=== PATIENT | female | born 1955 | race Caucasian/White ===

== ENCOUNTER 2017-09-27 13:40 | Inpatient (IN) | payer MEDICARE, OTHER, MEDICAID ==
[2017-09-27] VITALS (10 sets, daily range): BP systolic 130–162; BP diastolic 69–78
[~2017-09-27] VITALS: Ht 162.6 cm; Wt 100.8 kg
[2017-09-27] MEDS ORDERED: IPRATRPIUM/ALBUTEROL 0.5/2.5MG 3 ML NEBU. NEB ONE (14:00)
[2017-09-27 14:17] LABS: BASO # 0.1 x10^3/uL (0.0-0.2); BASO % 1 % (0-3); EOS % 0 % (0-3); HEMATOCRIT 41.4 % (36.0-47.0); HEMOGLOBIN 13.6 g/dL (12.0-15.5); LYMPH # 1.8 x10^3/uL (1.0-4.8); LYMPH % 15 % (24-48); MEAN CORPUSCULAR HEMOGLOBIN 29 pg (25-35); MEAN CORPUSCULAR HGB CONC 33 g/dL (31-37); MEAN CORPUSCULAR VOLUME 89 fL (79-100); MONO % 7 % (0-9); NEUT % 77 % (31-73); PLATELET COUNT 330 x10^3/uL (140-400); RED BLOOD COUNT 4.67 x10^6/uL (3.50-5.40); RED CELL DISTRIBUTION WIDTH 14.1 % (11.5-14.5); WHITE BLOOD COUNT 12.3 x10^3/uL (4.0-11.0)
[2017-09-27 14:22] LABS: CALCIUM 8.5 mg/dL (8.5-10.1); CREATININE 0.9 mg/dL (0.6-1.0); POTASSIUM 4.6 mmol/L (3.5-5.1)
--- NOTE | 2017-09-27 14:26 | RAD ---
AP chest 11/28/2015 Clinical indication: Shortness of air. Comparison: None. Findings: Enlargement of the cardiac silhouette with pulmonary venous congestion and interstitial opacities. There are trace bilateral pleural effusions. Mild bibasilar atelectasis. No pneumothorax. Impression: Findings of CHF with cardiomegaly, interstitial edema, and trace bilateral pleural effusions.
--- NOTE | 2017-09-27 14:26 | PHYS DOC ---
Past Medical History Past Medical History: CAD, Diabetes-Type II, Hypertension, Other Additional Past Medical Histor: Brown Lung Past Surgical History: Appendectomy, Cholecystectomy, Tonsillectomy, Tubal ligation Alcohol Use: None Drug Use: None Adult General Chief Complaint Chief Complaint: SHORTNESS OF BREATH HPI HPI 62-year-old female presenting to the emergency department today with shortness of breath. She denies any chest pain. Her shortness of breath started yesterday. She has a history of hypertension diabetes and coronary artery disease. 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 I'm unable to further clarify what she means by this. Her source of breath is worse with exertion and improved with rest. She denies fevers chills or recent cough. She denies unilateral leg swelling hemoptysis personal history of blood clotting disorder or recent immobilization or surgery. Review of systems is negative for chest pain abdominal pain nausea vomiting diaphoresis. She denies fevers or chills. All other review of systems is negative unless otherwise noted in history of present illness. ED course: 62-year-old female presenting to the emergency department today with shortness of breath found to be hypoxic upon triage placed on a nonrebreather then titrated down to nasal cannula. Otherwise the patient is afebrile upon arrival with a normal heart rate. Her blood pressure is mildly elevated. On physical exam the patient is breathing mildly tachypneic. On examination she has mild wheezing bilaterally. Otherwise abdomen is soft and nontender. The remainder the exam is unremarkable. No edema in the legs. Chest x-ray EKG and blood work obtained and reviewed. All other review of systems is negative unless otherwise noted in history of present illness. Patient was given Lasix and DuoNeb in the emergency room. Chest x-ray suggestive heart failure. Pedal edema present. Troponin minimally elevated. Discussed the case with Dr. Antunez who agreed with management. initial ekg shows sinus rhythm st segments congruent. Repeat EKG shows no acute changes. CT angiogram negative for acute pulmonary embolism. Patient was then admitted to the ICU for further evaluation workup and care. Review of Systems Review of Systems SEE ABOVE. Current Medications Current Medications Current Medications Medications (Trade) Dose Ordered Sig/Rosio Start Time Stop Time Status Last Admin Dose Admin Albuterol/ Ipratropium (Duoneb) 3 ml 1X ONCE 09/27/17 14:00 09/27/17 14:01 DC 09/27/17 13:59 3 ML Furosemide (Lasix) 40 mg 1X ONCE 09/27/17 14:45 09/27/17 14:46 DC 09/27/17 14:40 40 MG Iohexol (Omnipaque 300 Mg/ml) 75 ml 1X ONCE 09/27/17 15:15 09/27/17 15:16 DC 09/27/17 15:17 75 ML Ondansetron HCl (Zofran) 4 mg 1X ONCE 09/27/17 14:45 09/27/17 14:46 DC 09/27/17 14:37 4 MG Allergies Allergies Allergies Coded Allergies Type Severity Reaction Last Updated Verified No Known Drug Allergies 09/27/17 No Physical Exam Physical Exam SEE ABOVE Constitutional: Well developed, well nourished, no acute distress, non-toxic appearance. [] HENT: Normocephalic, atraumatic, bilateral external ears normal, oropharynx moist, no oral exudates, nose normal. [] Eyes: PERRLA, EOMI, conjunctiva normal, no discharge. [] Neck: Normal range of motion, no tenderness, supple, no stridor. [] Cardiovascular:Heart rate regular rhythm, no murmur [] Lungs & Thorax: SEE ABOVE Abdomen: Bowel sounds normal, soft, no tenderness, no masses, no pulsatile masses. [] Skin: Warm, dry, no erythema, no rash. [] Back: No tenderness, no CVA tenderness. [] Extremities: No tenderness, no cyanosis, no clubbing, ROM intact, no edema. [] Neurologic: Alert and oriented X 3, normal motor function, normal sensory function, no focal deficits noted. [] Psychologic: Affect normal, judgement normal, mood normal. [] Current Patient Data Vital Signs Vital Signs Date Time Temp Pulse Resp B/P (MAP) Pulse Ox O2 Delivery O2 Flow Rate FiO2 09/27/17 15:30 78 18 154/77 (102) 95 NonRebreather Mask 10.0 09/27/17 13:45 98.4 98.4 Lab Values Laboratory Tests Test 09/27/17 13:55 White Blood Count 12.3 x10^3/uL (4.0-11.0) H Red Blood Count 4.67 x10^6/uL (3.50-5.40) Hemoglobin 13.6 g/dL (12.0-15.5) Hematocrit 41.4 % (36.0-47.0) Mean Corpuscular Volume 89 fL (79-100) Mean Corpuscular Hemoglobin 29 pg (25-35) Mean Corpuscular Hemoglobin Concent 33 g/dL (31-37) Red Cell Distribution Width 14.1 % (11.5-14.5) Platelet Count 330 x10^3/uL (140-400) Neutrophils (%) (Auto) 77 % (31-73) H Lymphocytes (%) (Auto) 15 % (24-48) L Monocytes (%) (Auto) 7 % (0-9) Eosinophils (%) (Auto) 0 % (0-3) Basophils (%) (Auto) 1 % (0-3) Neutrophils # (Auto) 9.5 x10^3uL (1.8-7.7) H Lymphocytes # (Auto) 1.8 x10^3/uL (1.0-4.8) Monocytes # (Auto) 0.8 x10^3/uL (0.0-1.1) Eosinophils # (Auto) 0.0 x10^3/uL (0.0-0.7) Basophils # (Auto) 0.1 x10^3/uL (0.0-0.2) Sodium Level 140 mmol/L (136-145) Potassium Level 4.6 mmol/L (3.5-5.1) Chloride Level 100 mmol/L (98-107) Carbon Dioxide Level 30 mmol/L (21-32) Anion Gap 10 (6-14) Blood Urea Nitrogen 12 mg/dL (7-20) Creatinine 0.9 mg/dL (0.6-1.0) Estimated GFR (Cockcroft-Gault) 63.0 Glucose Level 195 mg/dL (70-99) H Calcium Level 8.5 mg/dL (8.5-10.1) Total Bilirubin 0.6 mg/dL (0.2-1.0) Direct Bilirubin 0.1 mg/dL (0.0-0.2) Aspartate Amino Transferase (AST) 30 U/L (15-37) Alanine Aminotransferase (ALT) 24 U/L (14-59) Alkaline Phosphatase 111 U/L (46-116) Troponin I Quantitative 0.072 ng/mL (0.000-0.055) XG-Ayh-P-Type Natriuretic Peptide 2221 pg/mL (0-124) H Total Protein 8.1 g/dL (6.4-8.2) Albumin 3.5 g/dL (3.4-5.0) Lipase 78 U/L (73-393) Laboratory Tests 09/27/17 13:55 Laboratory Tests 09/27/17 13:55 EKG EKG [] Radiology/Procedures Radiology/Procedures [] Course & Med Decision Making Course & Med Decision Making Pertinent Labs and Imaging studies reviewed. (See chart for details) [] Dragon Disclaimer Dragon Disclaimer This electronic medical record was generated, in whole or in part, using a voice recognition dictation system. Departure Departure Impression: Primary Impression: SOB (shortness of breath) Disposition: ADMITTED INPATIENT Admitting Physician: Sarah Vyas Condition: STABLE Critical Care Time Critical care time was [45] minutes exclusive of procedures. Time was spent evaluating the patient, ordering the administration of medications, reviewing chest x-ray, reevaluating the patient, discussing with the admitting provider and documenting. JOHAN KRAFT MD Sep 27, 2017 14:26
[2017-09-27 14:30] LABS: ALBUMIN 3.5 g/dL (3.4-5.0); DIRECT BILIRUBIN 0.1 mg/dL (0.0-0.2); TOTAL BILIRUBIN 0.6 mg/dL (0.2-1.0); TOTAL PROTEIN 8.1 g/dL (6.4-8.2)
[2017-09-27] MEDS ORDERED: ONDANSETRON PF 4 MG/2 ML VIAL. ONE (14:31)
[2017-09-27] MEDS ORDERED: FUROSEMIDE 40 MG/4 ML VIAL. IVP ONE (14:45)
[2017-09-27] MEDS ORDERED: ONDANSETRON PF 4 MG/2 ML VIAL. IV ONE (14:45)
[2017-09-27] MEDS ORDERED: IOHEXOL 300 MG/ML 100ML VIAL. IV ONE (15:15)
[2017-09-27] MEDS ORDERED: ONDANSETRON PF 4 MG/2 ML VIAL. IV PRN (15:45)
[2017-09-27] MEDS ORDERED: MORPHINE SULFATE 2 MG/ML DISP.SYRIN. IV PRN (15:45)
[2017-09-27] MEDS ORDERED: ASPIRIN CHEWABLE 81 MG TABLET. PO ONE (16:00)
--- NOTE | 2017-09-27 16:18 | RAD ---
PQRS Compliance Statement: One or more of the following individualized dose reduction techniques were utilized for this examination: 1. Automated exposure control 2. Adjustment of the mA and/or kV according to patient size 3. Use of iterative reconstruction technique CT ANGIOGRAPHY CHEST: 09/27/2017 3:19 PM Indication: 62 years old Female. Shortness of breath. Comparison studies: None. Technique: Multiple contiguous axial images of the chest were obtained from the thoracic inlet through the upper abdomen following the administration of nonionic contrast. Two-D coronal and sagittal reconstructions were performed. Maximum intensity projection images were obtained at an independent workstation to further evaluate the suspected abnormality of the pulmonary arteries. FINDINGS: Thyroid gland is normal in appearance. There are no pathologically enlarged axillary lymph nodes. A right precarinal lymph node measures 9 mm by short axis. No pathologically enlarged hilar lymph nodes are present. Heart size is within normal limits. Thoracic aorta is normal in course and caliber. Three-vessel coronary artery vascular calcifications are present. There is no pericardial effusion. There are small bilateral pleural effusions with adjacent airspace consolidation which may represent compressive atelectasis versus infiltrates. There is diffuse intrahepatic bile or septal thickening with groundglass attenuation compatible with pulmonary vascular congestion and pulmonary edema. Subpleural interstitial opacities as well as alveolar consolidation may represent infectious/inflammatory pneumonitis. No pneumothorax. Visualized portions of the upper abdomen are normal. Moderate degenerative changes of the thoracic spine are present. IMPRESSION: 1. No evidence for acute pulmonary embolism. 2. Constellation of findings are most suggestive of congestive heart failure with small bilateral pleural effusions with adjacent airspace consolidation representing either compressive atelectasis or infiltrates as well as pulmonary vascular congestion with interstitial and alveolar edema. 3. Multifocal subpleural patchy areas of consolidation to represent a pneumonitis of infectious/inflammatory etiology. A follow-up chest CT in 4-6 weeks is recommended to ensure resolution. Electronically signed by: Olinda Price MD (09/27/2017 4:15 PM) [facility]
[2017-09-27] MEDS ORDERED: METO100T7 PO (18:04)
[2017-09-27] MEDS ORDERED: OMEP40CA5 PO (18:04)
[2017-09-27] MEDS ORDERED: CHOL10003 PO (18:04)
[2017-09-27] MEDS ORDERED: NIFE90TA PO (18:04)
[2017-09-27] MEDS ORDERED: DULO60CA6 PO (18:04)
[2017-09-27] MEDS ORDERED: ASPI-630 PO (18:04)
[2017-09-27] MEDS ORDERED: potassium OTC (18:04)
[2017-09-27] MEDS ORDERED: CETI10CA PO (18:04)
[2017-09-27] MEDS ORDERED: LOSA100T6 PO (18:04)
[2017-09-27] MEDS ORDERED: NITR100C62 PO (18:04)
[2017-09-27] MEDS ORDERED: LACT1CAP8 PO (18:04)
[2017-09-27] MEDS ORDERED: FURO-69 PO (18:04)
[2017-09-27] MEDS ORDERED: MIRA50TA PO (18:04)
[2017-09-27] MEDS ORDERED: METF500T9 PO (18:04)
[2017-09-27] MEDS ORDERED: HYDR-2758 PO (18:04)
[2017-09-27] MEDS ORDERED: SIMV40TA3 PO (18:04)
--- NOTE | 2017-09-27 18:30 | PDOC1 ---
History and Physical Date of Admission Date of Admission DATE: 09/27/17 TIME: 18:21 Identification/Chief Complaint Chief Complaint short of breath Problems: Source Source: Chart review, Patient History of Present Illness History of Present Illness Ms. Devi, is a 62-year-old femalea admit to ICU with acute shortness of breath. > 24 hours of symptoms, has worsened over time, she lives [place] of [facility] in [place] and was visiting her daughter the past few days, and had worsening weakness and dyspnea and LE swelling. She takes lasix, but has not cardiac disease she is aware of, and has not had an echo that she can recall She has a history of hypertension diabetes and coronary artery disease. 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 She has never heard of interstitial lung disease. shortness of breath at rest today, w. exertion for days no chest pain Past Medical History Cardiovascular: HTN Pulmonary: Other (brown lung disease) GI: No pertinent hx Psych: Depression Endocrine: Diabetes Family History Family History: Other (lung disease from glove factory) Social History Smoke: No ALCOHOL: rare Drugs: None Current Problem List Problem List Problems Medical Problems: (1) SOB (shortness of breath) Status: Acute Problems: Current Medications Current Medications Current Medications Albuterol/ Ipratropium (Duoneb) 3 ml 1X ONCE NEB Last administered on 13:59; Start 09/27/17 at 14:00; Stop 09/27/17 at 14:01; Status DC Ondansetron HCl (Zofran) 4 mg STK-MED ONCE .ROUTE ; Start 09/27/17 at 14:31; Stop 09/27/17 at 14:32; Status DC Furosemide (Lasix) 40 mg 1X ONCE IVP Last administered on 09/27/17 14:40; Start 09/27/17 at 14:45; Stop 09/27/17 at 14:46; Status DC Ondansetron HCl (Zofran) 4 mg 1X ONCE IV Last administered on 09/27/17 14:37 ; Start 09/27/17 at 14:45; Stop 09/27/17 at 14:46; Status DC Iohexol (Omnipaque 300 Mg/ml) 75 ml 1X ONCE IV Last administered on 15:17; Start 09/27/17 at 15:15; Stop 09/27/17 at 15:16; Status DC Ondansetron HCl (Zofran) 4 mg PRN Q8HRS PRN IV NAUSEA/VOMITING; Start at 15:45; Stop 09/28/17 at 15:44 Morphine Sulfate 2 mg PRN Q2HR PRN IV PAIN; Start 09/27/17 at 15:45; Stop at 15:44 Aspirin (Children'S Aspirin) 324 mg 1X ONCE PO Last administered on 16:03; Start 09/27/17 at 16:00; Stop 09/27/17 at 16:01; Status DC Active Scripts Active Reported [potassium OTC] Hydrocodone-Apap 5-325 (Hydrocodone Bit/Acetaminophen) 1 Each Tablet 1 Tab PO PRN Q6HRS PRN Macrobid 100 Mg Capsule (Nitrofurantoin Monohyd/M-Cryst) 100 Mg Capsule 100 Mg PO DAILY Probiotic (Lactobacillus Combo No.11) 1 Each Cap.sprink 1 Each PO DAILY Simvastatin 40 Mg Tablet 1 Tab PO QHS Cymbalta (Duloxetine Hcl) 60 Mg Capsule.dr 1 Cap PO DAILY Metformin Hcl Er (Metformin Hcl) 500 Mg Tab.er.24h 2 Tab PO BIDAC Metoprolol Tartrate 100 Mg Tablet 1 Tab PO BID Losartan Potassium 100 Mg Tablet 100 Mg PO DAILY Lasix (Furosemide) 20 Mg Tablet 3 Tab PO DAILY Omeprazole 40 Mg Capsule.dr 1 Cap PO DAILY Myrbetriq (Mirabegron) 50 Mg Tab.er.24h 50 Mg PO DAILY Procardia Xl (Nifedipine) 90 Mg Tab.er.24 1 Tab PO DAILY Aspirin 81 Mg Tab.chew 1 Tab PO DAILY Vitamin D3 (Cholecalciferol (Vitamin D3)) 1,000 Unit Tablet 1 Tab PO DAILY Zyrtec (Cetirizine Hcl) 10 Mg Capsule 10 Mg PO Allergies Allergies: Coded Allergies: No Known Drug Allergies (Unverified , 09/27/17) ROS General: No: Chills, Night Sweats, Fatigue, Malaise, Appetite, Other PSYCHOLOGICAL ROS: No: Anxiety, Behavioral Disorder, Concentration difficultie , Decreased libido, Depression, Disorientation, Hallucinations, Hostility, Irritablity, Memory difficulties, Mood Swings, Obsessive thoughts, Physical abuse, Sexual abuse, Sleep disturbances, Suicidal ideation, Other Eyes: No Blurry vision, No Decreased vision, No Double vision, No Dry eyes, No Excessive tearing, No Eye Pain, No Itchy Eyes, No Loss of vision, No Photophobia , No Scotomata, No Uses contacts, No Uses glasses, No Other HEENT: No: Heacaches, Visual Changes, Hearing change, Nasal congestion, Nasal discharge, Oral lesions, Sinus pain, Sore Throat, Epistaxis, Sneezing, Snoring, Tinnitus, Vertigo, Vocal changes, Other Respiratory: YES: Orthopnea, Shortness of breath, SOB with excertion, Tachypnea , No: Cough, Hemoptysis, Pleuritic Pain, Sputum Changes, Stridor, Wheezing, Other Cardiovascular: yes Edema, No Palpitations, No Orthopnea, No Paroxysmal Noc. Dyspnea, No Lt Headedness, No Other Gastrointestinal: Yes Nausea, No Vomiting, No Abdominal Pain, No Diarrhea, No Constipation, No Melena, No Hematochezia, No Other Genitourinary: No Dysuria, No Frequency, No Incontinence, No Hematuria, No Retention, No Discharge, No Urgency, No Pain, No Flank Pain, No Other, No , No , No , No , No , No , No Musculoskeletal: Yes Joint Stiffness Neurological: No Behavorial Changes, No Bowel/Bladder ControlChng, No Confusion , No Dizziness, No Gait Disturbance, No Headaches, No Impaired Coord/balance, No Memory Loss, No Numbness/Tingling, No Seizures, No Speech Problems, No Tremors, No Visual Changes, No Weakness, No Other Skin: Yes Dry Skin Physical Exam General: Alert, Oriented X3, Cooperative, mild distress HEENT: Atraumatic, PERRLA, EOMI, Mucous membr. moist/pink Lungs: Clear to auscultation Heart: no gallops, no murmurs Abdomen: Normal bowel sounds, Soft Rectal Exam: not examined Extremities: No clubbing, Normal pulses, Other (2+ LE edema pedal ) Skin: No rashes, No breakdown Neuro: Normal speech, Sensation intact, Cranial nerves 3-12 NL Psych/Mental Status: Mental status NL, Mood NL Vitals Vitals Vital Signs Date Time Temp Pulse Resp B/P (MAP) Pulse Ox O2 Delivery O2 Flow Rate FiO2 09/27/17 18:00 74 27 130/77 (94) 95 NonRebreather Mask 09/27/17 16:20 98.5 98.5 09/27/17 16:00 10.0 Labs Labs Laboratory Tests Test 09/27/17 13:55 White Blood Count 12.3 x10^3/uL (4.0-11.0) Red Blood Count 4.67 x10^6/uL (3.50-5.40) Hemoglobin 13.6 g/dL (12.0-15.5) Hematocrit 41.4 % (36.0-47.0) Mean Corpuscular Volume 89 fL (79-100) Mean Corpuscular Hemoglobin 29 pg (25-35) Mean Corpuscular Hemoglobin Concent 33 g/dL (31-37) Red Cell Distribution Width 14.1 % (11.5-14.5) Platelet Count 330 x10^3/uL (140-400) Neutrophils (%) (Auto) 77 % (31-73) Lymphocytes (%) (Auto) 15 % (24-48) Monocytes (%) (Auto) 7 % (0-9) Eosinophils (%) (Auto) 0 % (0-3) Basophils (%) (Auto) 1 % (0-3) Neutrophils # (Auto) 9.5 x10^3uL (1.8-7.7) Lymphocytes # (Auto) 1.8 x10^3/uL (1.0-4.8) Monocytes # (Auto) 0.8 x10^3/uL (0.0-1.1) Eosinophils # (Auto) 0.0 x10^3/uL (0.0-0.7) Basophils # (Auto) 0.1 x10^3/uL (0.0-0.2) Sodium Level 140 mmol/L (136-145) Potassium Level 4.6 mmol/L (3.5-5.1) Chloride Level 100 mmol/L (98-107) Carbon Dioxide Level 30 mmol/L (21-32) Anion Gap 10 (6-14) Blood Urea Nitrogen 12 mg/dL (7-20) Creatinine 0.9 mg/dL (0.6-1.0) Estimated GFR (Cockcroft-Gault) 63.0 Glucose Level 195 mg/dL (70-99) Calcium Level 8.5 mg/dL (8.5-10.1) Total Bilirubin 0.6 mg/dL (0.2-1.0) Direct Bilirubin 0.1 mg/dL (0.0-0.2) Aspartate Amino Transf (AST/SGOT) 30 U/L (15-37) Alanine Aminotransferase (ALT/SGPT) 24 U/L (14-59) Alkaline Phosphatase 111 U/L (46-116) Troponin I Quantitative 0.072 ng/mL (0.000-0.055) YV-Dwf-U-Type Natriuretic Peptide 2221 pg/mL (0-124) Total Protein 8.1 g/dL (6.4-8.2) Albumin 3.5 g/dL (3.4-5.0) Lipase 78 U/L (73-393) Laboratory Tests Test 09/27/17 13:55 White Blood Count 12.3 x10^3/uL (4.0-11.0) Red Blood Count 4.67 x10^6/uL (3.50-5.40) Hemoglobin 13.6 g/dL (12.0-15.5) Hematocrit 41.4 % (36.0-47.0) Mean Corpuscular Volume 89 fL (79-100) Mean Corpuscular Hemoglobin 29 pg (25-35) Mean Corpuscular Hemoglobin Concent 33 g/dL (31-37) Red Cell Distribution Width 14.1 % (11.5-14.5) Platelet Count 330 x10^3/uL (140-400) Neutrophils (%) (Auto) 77 % (31-73) Lymphocytes (%) (Auto) 15 % (24-48) Monocytes (%) (Auto) 7 % (0-9) Eosinophils (%) (Auto) 0 % (0-3) Basophils (%) (Auto) 1 % (0-3) Neutrophils # (Auto) 9.5 x10^3uL (1.8-7.7) Lymphocytes # (Auto) 1.8 x10^3/uL (1.0-4.8) Monocytes # (Auto) 0.8 x10^3/uL (0.0-1.1) Eosinophils # (Auto) 0.0 x10^3/uL (0.0-0.7) Basophils # (Auto) 0.1 x10^3/uL (0.0-0.2) Sodium Level 140 mmol/L (136-145) Potassium Level 4.6 mmol/L (3.5-5.1) Chloride Level 100 mmol/L (98-107) Carbon Dioxide Level 30 mmol/L (21-32) Anion Gap 10 (6-14) Blood Urea Nitrogen 12 mg/dL (7-20) Creatinine 0.9 mg/dL (0.6-1.0) Estimated GFR (Cockcroft-Gault) 63.0 Glucose Level 195 mg/dL (70-99) Calcium Level 8.5 mg/dL (8.5-10.1) Total Bilirubin 0.6 mg/dL (0.2-1.0) Direct Bilirubin 0.1 mg/dL (0.0-0.2) Aspartate Amino Transf (AST/SGOT) 30 U/L (15-37) Alanine Aminotransferase (ALT/SGPT) 24 U/L (14-59) Alkaline Phosphatase 111 U/L (46-116) Troponin I Quantitative 0.072 ng/mL (0.000-0.055) OD-Knz-Q-Type Natriuretic Peptide 2221 pg/mL (0-124) Total Protein 8.1 g/dL (6.4-8.2) Albumin 3.5 g/dL (3.4-5.0) Lipase 78 U/L (73-393) VTE Prophylaxis Ordered VTE Prophylaxis Devices: Yes VTE Pharmacological Prophylaxi: Yes Assessment/Plan Assessment/Plan acute hypoxic respiratory failure CHF acute diastolic failure likely possible interstitial lung disease from working 25 years at the [employer], consult PULM, she described "brown lung" obesity, BMI 38 htn Dm2 admit to ICU, 35 min CESILIA HUNTLEY MD Sep 27, 2017 18:30
[2017-09-27] MEDS ORDERED: DEXTROSE 50% 25 GM / 50ML DISP.SYRIN. IV PRN (18:45)
--- NOTE | 2017-09-27 19:30 | EKG ---
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
--- NOTE | 2017-09-27 19:31 | EKG ---
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 POSSIBLY ABNORMAL ECG RI6.01 No previous ECG available for comparison Electronically Signed On 10-10-2017 10:40:43 SNOUT PULLER by Jean Marie Grant
[2017-09-27] MEDS: HYDROcodone/APAP 5/325MG 1 TAB TABLET PO PRN (19:45)
[2017-09-27] MEDS ORDERED: FUROSEMIDE 20 MG/2 ML VIAL. IVP ONE (20:30)
[2017-09-27] MEDS ORDERED: PHYTONADIONE 10 MG/ML AMPUL. SQ ONE (20:30)
[2017-09-27] MEDS: OXYBUTYNIN CHLORIDE 5 MG TABLET PO SCH (21:15)
[2017-09-27] MEDS: SIMVASTATIN 40 MG TABLET. PO SCH (21:15)
[2017-09-27] MEDS: METOPROLOL TART IMMED RELEASE 50 MG TABLET. PO SCH (21:16)
[2017-09-28] VITALS (14 sets, daily range): BP systolic 126–169; BP diastolic 64–86
[2017-09-28] MEDS: HYDROcodone/APAP 5/325MG 1 TAB TABLET PO PRN ×3 (02:41→22:59)
[2017-09-28 05:51] LABS: BASO % 0 % (0-3); EOS % 1 % (0-3); HEMATOCRIT 38.7 % (36.0-47.0); HEMOGLOBIN 12.7 g/dL (12.0-15.5); LYMPH # 1.4 x10^3/uL (1.0-4.8); LYMPH % 14 % (24-48); MEAN CORPUSCULAR HEMOGLOBIN 29 pg (25-35); MEAN CORPUSCULAR HGB CONC 33 g/dL (31-37); MEAN CORPUSCULAR VOLUME 89 fL (79-100); MONO % 6 % (0-9); NEUT % 80 % (31-73); PLATELET COUNT 310 x10^3/uL (140-400); RED BLOOD COUNT 4.37 x10^6/uL (3.50-5.40); RED CELL DISTRIBUTION WIDTH 14.7 % (11.5-14.5); WHITE BLOOD COUNT 10.6 x10^3/uL (4.0-11.0)
[2017-09-28 06:06] LABS: CALCIUM 8.5 mg/dL (8.5-10.1); CREATININE 0.7 mg/dL (0.6-1.0); GFR 84.2
[2017-09-28] MEDS ORDERED: metFORMIN XR 500 MG TAB.ER.24H PO SCH (07:30)
[2017-09-28] MEDS: INSULIN ASPART 300 UNITS/3 ML INSULN.PEN SQ SCH ×3 (08:00→16:27)
[2017-09-28] MEDS ORDERED: ALBUTEROL SULFATE 2.5 MG/3 ML NEBU. NEB PRN (08:15)
[2017-09-28] MEDS ORDERED: guaiFENesin DM 200MG/20MG 10 ML SYRUP PO PRN (08:15)
[2017-09-28] MEDS ORDERED: CONTRAST GIVEN MC PRN (08:30)
[2017-09-28] MEDS: ASPIRIN CHEWABLE 81 MG TABLET. PO SCH (09:28)
[2017-09-28] MEDS: LACTOBACILLUS RHAMNOSUS GG 1 CAPSULE. PO SCH (09:28)
[2017-09-28] MEDS: PANTOPRAZOLE 40 MG TABLET.DR. PO SCH (09:28)
[2017-09-28] MEDS: OXYBUTYNIN CHLORIDE 5 MG TABLET PO SCH ×3 (09:28→22:58)
[2017-09-28] MEDS: CHOLECALCIFEROL (VITAMIN D3) 1,000 UNIT TABLET PO SCH (09:28)
[2017-09-28] MEDS: DULoxetine HCL 30 MG CAPSULE.DR PO SCH (09:29)
[2017-09-28] MEDS: NITROFURANTOIN MONOHYD/M-CRYST 100 MG CAPSULE. PO SCH (09:31)
[2017-09-28] MEDS: METOPROLOL TART IMMED RELEASE 50 MG TABLET. PO SCH ×2 (09:31→22:58)
[2017-09-28] MEDS: ENOXAPARIN 40 MG/0.4 ML SYRINGE. SQ SCH (09:33)
--- NOTE | 2017-09-28 10:25 | CONS ---
DATE OF CONSULTATION: ATTENDING PHYSICIAN: Dr. Vays. REASON FOR CONSULTATION: Dyspnea, hypoxia. HISTORY OF PRESENT ILLNESS: The patient is a 62-year-old female who has no significant history of tobacco use. She uses oxygen at nighttime and p.r.n. during the day. She was brought into the hospital with complaint of shortness of breath for the last few days. She has lower extremity edema and had some weight gain. No chest pain. She has a mild cough, which has been nonproductive. No fever, no chills. 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 No evidence of any interstitial lung disease that she knows of. The patient is currently requiring 3 liters of oxygen. She underwent imaging study, which was reviewed by me. She has no evidence of pulmonary embolism. She has small bilateral pleural effusions. She has ground-glass infiltrates and septal thickening suggesting congestive heart failure. Clinically, less likely pneumonia. The patient did receive diuresis and she feels better. 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 PAST SURGICAL HISTORY: No recent surgery. ALLERGIES: None. MEDICATIONS: Reviewed as listed in the MRAD including Lovenox for deep venous thrombosis prophylaxis. REVIEW OF SYSTEMS: Twelve-point systems review obtained. Pertinent positives discussed in my history of present illness, otherwise noncontributory. All systems that were negative were reviewed as well. SOCIAL HISTORY: Nonsmoker. PHYSICAL EXAMINATION: GENERAL: She is awake, following commands. VITAL SIGNS: Blood pressure 150/83, afebrile, pulse ox 95% on nasal cannula. HEENT: Sclerae nonicteric. NECK: Supple. LUNGS: Diminished breath sounds. No wheezing. CARDIOVASCULAR: Regular rate and rhythm. ABDOMEN: Soft, obese. EXTREMITIES: With bilateral pitting edema. LABORATORY DATA: Reviewed. White cell count 10.6, hemoglobin 12.7 and platelets are 310. BUN is 11, creatinine 0.7. Troponin level is 0.139. IMPRESSION: 1. Acute hypoxic respiratory failure secondary to most likely congestive heart failure. 2. Clinically, less likely pneumonia. 3. Abnormal CT chest and findings are more consistent with congestive heart failure rather than pneumonia. 4. No significant history of tobacco use. RECOMMENDATIONS: 1. Continue with present oxygen. 2. Continue diuresis. 3. Follow chest x-ray. 4. Wean FiO2 once saturation stays above 94%. 5. Bronchodilators p.r.n. 6. Echocardiogram. 7. Discussed with the patient's family and will follow along with you. Critical care time 37 minutes. TEJAS YEH MD DR: PEARL/brianna JOB#: [id number] / [id number]
--- NOTE | 2017-09-28 11:07 | PDOC ---
PROGRESS NOTES Chief Complaint Chief Complaint acute hypoxic respiratory failure CHF acute diastolic failure likely possible interstitial lung disease from working 25 years at the [employer], she described "brown lung" obesity, BMI 38 htn Dm2 History of Present Illness History of Present Illness Breathing better Seen in ICU Chest x-ray does show some minimal pleural effusion and interstitial edema. CTA chest did not show any PE but verifies the chest x-ray findings Troponin peaked at 0.1 Bicarbonate is 37 mildly elevated, the rest of the blood work is negative. Plan: Okay to transfer out of ICU Follow pulmonary recommendations and cardiology PT OT Check an echocardiogram Further conditions pending above course Discussed with INDUSTRIAL PHARMACIST and pulmonary Vitals Vitals Vital Signs Date Time Temp Pulse Resp B/P (MAP) Pulse Ox O2 Delivery O2 Flow Rate FiO2 09/28/17 10:42 28 91 Nasal Cannula 13.0 09/28/17 09:32 75 150/83 09/28/17 08:00 98.5 98.5 Physical Exam General: Alert, Oriented X3, Cooperative, mild distress Abdomen: Normal bowel sounds, Soft Extremities: No clubbing, Normal pulses, Other (2+ LE edema pedal ) Skin: No rashes, No breakdown Labs LABS Laboratory Tests Test 09/27/17 13:55 09/27/17 21:10 09/28/17 03:30 09/28/17 07:54 White Blood Count 12.3 x10^3/uL (4.0-11.0) 10.6 x10^3/uL (4.0-11.0) Red Blood Count 4.67 x10^6/uL (3.50-5.40) 4.37 x10^6/uL (3.50-5.40) Hemoglobin 13.6 g/dL (12.0-15.5) 12.7 g/dL (12.0-15.5) Hematocrit 41.4 % (36.0-47.0) 38.7 % (36.0-47.0) Mean Corpuscular Volume 89 fL (79-100) 89 fL (79-100) Mean Corpuscular Hemoglobin 29 pg (25-35) 29 pg (25-35) Mean Corpuscular Hemoglobin Concent 33 g/dL (31-37) 33 g/dL (31-37) Red Cell Distribution Width 14.1 % (11.5-14.5) 14.7 % (11.5-14.5) Platelet Count 330 x10^3/uL (140-400) 310 x10^3/uL (140-400) Neutrophils (%) (Auto) 77 % (31-73) 80 % (31-73) Lymphocytes (%) (Auto) 15 % (24-48) 14 % (24-48) Monocytes (%) (Auto) 7 % (0-9) 6 % (0-9) Eosinophils (%) (Auto) 0 % (0-3) 1 % (0-3) Basophils (%) (Auto) 1 % (0-3) 0 % (0-3) Neutrophils # (Auto) 9.5 x10^3uL (1.8-7.7) 8.4 x10^3uL (1.8-7.7) Lymphocytes # (Auto) 1.8 x10^3/uL (1.0-4.8) 1.4 x10^3/uL (1.0-4.8) Monocytes # (Auto) 0.8 x10^3/uL (0.0-1.1) 0.6 x10^3/uL (0.0-1.1) Eosinophils # (Auto) 0.0 x10^3/uL (0.0-0.7) 0.1 x10^3/uL (0.0-0.7) Basophils # (Auto) 0.1 x10^3/uL (0.0-0.2) 0.0 x10^3/uL (0.0-0.2) Sodium Level 140 mmol/L (136-145) 141 mmol/L (136-145) Potassium Level 4.6 mmol/L (3.5-5.1) 4.0 mmol/L (3.5-5.1) Chloride Level 100 mmol/L (98-107) 99 mmol/L (98-107) Carbon Dioxide Level 30 mmol/L (21-32) 37 mmol/L (21-32) Anion Gap 10 (6-14) 5 (6-14) Blood Urea Nitrogen 12 mg/dL (7-20) 11 mg/dL (7-20) Creatinine 0.9 mg/dL (0.6-1.0) 0.7 mg/dL (0.6-1.0) Estimated GFR (Cockcroft-Gault) 63.0 84.2 Glucose Level 195 mg/dL (70-99) 170 mg/dL (70-99) Calcium Level 8.5 mg/dL (8.5-10.1) 8.5 mg/dL (8.5-10.1) Total Bilirubin 0.6 mg/dL (0.2-1.0) Direct Bilirubin 0.1 mg/dL (0.0-0.2) Aspartate Amino Transf (AST/SGOT) 30 U/L (15-37) Alanine Aminotransferase (ALT/SGPT) 24 U/L (14-59) Alkaline Phosphatase 111 U/L (46-116) Troponin I Quantitative 0.072 ng/mL (0.000-0.055) 0.139 ng/mL (0.000-0.055) 0.101 ng/mL (0.000-0.055) UR-Wov-F-Type Natriuretic Peptide 2221 pg/mL (0-124) Total Protein 8.1 g/dL (6.4-8.2) Albumin 3.5 g/dL (3.4-5.0) Lipase 78 U/L (73-393) Glucose (Fingerstick) 149 mg/dL (70-99) Review of Systems Review of Systems A 14 point ROS was completed with the following noted as positive: Other systems reviewed and negative. \\CONSTITUTIONAL: No fever or chills EYES: No recent changes SKIN: No rash or itching CARDIOVASCULAR: No chest pain, syncope, palpitations, or edema RESPIRATORY: No SOB or cough GASTROINTESTINAL: No nausea, vomiting or abdominal pain NEUROLOGICAL: No headaches or weakness ENDOCRINE: No cold or heat intolerance GENITOURINARY: No urgency or frequency of urination MUSCULOSKELETAL: No back pain or joint pain LYMPHATICS: No enlarged lymph nodes PSYCHIATRIC: No anxiety or depression Assessment and Plan Assessmemt and Plan Problems Medical Problems: (1) SOB (shortness of breath) Status: Acute Problems: Comment Review of Relevant I have reviewed the following items rayna (where applicable) has been applied. Labs Laboratory Tests Test 09/27/17 13:55 09/27/17 21:10 09/28/17 03:30 09/28/17 07:54 White Blood Count 12.3 x10^3/uL (4.0-11.0) 10.6 x10^3/uL (4.0-11.0) Red Blood Count 4.67 x10^6/uL (3.50-5.40) 4.37 x10^6/uL (3.50-5.40) Hemoglobin 13.6 g/dL (12.0-15.5) 12.7 g/dL (12.0-15.5) Hematocrit 41.4 % (36.0-47.0) 38.7 % (36.0-47.0) Mean Corpuscular Volume 89 fL (79-100) 89 fL (79-100) Mean Corpuscular Hemoglobin 29 pg (25-35) 29 pg (25-35) Mean Corpuscular Hemoglobin Concent 33 g/dL (31-37) 33 g/dL (31-37) Red Cell Distribution Width 14.1 % (11.5-14.5) 14.7 % (11.5-14.5) Platelet Count 330 x10^3/uL (140-400) 310 x10^3/uL (140-400) Neutrophils (%) (Auto) 77 % (31-73) 80 % (31-73) Lymphocytes (%) (Auto) 15 % (24-48) 14 % (24-48) Monocytes (%) (Auto) 7 % (0-9) 6 % (0-9) Eosinophils (%) (Auto) 0 % (0-3) 1 % (0-3) Basophils (%) (Auto) 1 % (0-3) 0 % (0-3) Neutrophils # (Auto) 9.5 x10^3uL (1.8-7.7) 8.4 x10^3uL (1.8-7.7) Lymphocytes # (Auto) 1.8 x10^3/uL (1.0-4.8) 1.4 x10^3/uL (1.0-4.8) Monocytes # (Auto) 0.8 x10^3/uL (0.0-1.1) 0.6 x10^3/uL (0.0-1.1) Eosinophils # (Auto) 0.0 x10^3/uL (0.0-0.7) 0.1 x10^3/uL (0.0-0.7) Basophils # (Auto) 0.1 x10^3/uL (0.0-0.2) 0.0 x10^3/uL (0.0-0.2) Sodium Level 140 mmol/L (136-145) 141 mmol/L (136-145) Potassium Level 4.6 mmol/L (3.5-5.1) 4.0 mmol/L (3.5-5.1) Chloride Level 100 mmol/L (98-107) 99 mmol/L (98-107) Carbon Dioxide Level 30 mmol/L (21-32) 37 mmol/L (21-32) Anion Gap 10 (6-14) 5 (6-14) Blood Urea Nitrogen 12 mg/dL (7-20) 11 mg/dL (7-20) Creatinine 0.9 mg/dL (0.6-1.0) 0.7 mg/dL (0.6-1.0) Estimated GFR (Cockcroft-Gault) 63.0 84.2 Glucose Level 195 mg/dL (70-99) 170 mg/dL (70-99) Calcium Level 8.5 mg/dL (8.5-10.1) 8.5 mg/dL (8.5-10.1) Total Bilirubin 0.6 mg/dL (0.2-1.0) Direct Bilirubin 0.1 mg/dL (0.0-0.2) Aspartate Amino Transf (AST/SGOT) 30 U/L (15-37) Alanine Aminotransferase (ALT/SGPT) 24 U/L (14-59) Alkaline Phosphatase 111 U/L (46-116) Troponin I Quantitative 0.072 ng/mL (0.000-0.055) 0.139 ng/mL (0.000-0.055) 0.101 ng/mL (0.000-0.055) PR-Xco-N-Type Natriuretic Peptide 2221 pg/mL (0-124) Total Protein 8.1 g/dL (6.4-8.2) Albumin 3.5 g/dL (3.4-5.0) Lipase 78 U/L (73-393) Glucose (Fingerstick) 149 mg/dL (70-99) Laboratory Tests Test 09/27/17 13:55 12/16/17 21:10 09/28/17 03:30 09/28/17 07:54 White Blood Count 12.3 x10^3/uL (4.0-11.0) 10.6 x10^3/uL (4.0-11.0) Red Blood Count 4.67 x10^6/uL (3.50-5.40) 4.37 x10^6/uL (3.50-5.40) Hemoglobin 13.6 g/dL (12.0-15.5) 12.7 g/dL (12.0-15.5) Hematocrit 41.4 % (36.0-47.0) 38.7 % (36.0-47.0) Mean Corpuscular Volume 89 fL (79-100) 89 fL (79-100) Mean Corpuscular Hemoglobin 29 pg (25-35) 29 pg (25-35) Mean Corpuscular Hemoglobin Concent 33 g/dL (31-37) 33 g/dL (31-37) Red Cell Distribution Width 14.1 % (11.5-14.5) 14.7 % (11.5-14.5) Platelet Count 330 x10^3/uL (140-400) 310 x10^3/uL (140-400) Neutrophils (%) (Auto) 77 % (31-73) 80 % (31-73) Lymphocytes (%) (Auto) 15 % (24-48) 14 % (24-48) Monocytes (%) (Auto) 7 % (0-9) 6 % (0-9) Eosinophils (%) (Auto) 0 % (0-3) 1 % (0-3) Basophils (%) (Auto) 1 % (0-3) 0 % (0-3) Neutrophils # (Auto) 9.5 x10^3uL (1.8-7.7) 8.4 x10^3uL (1.8-7.7) Lymphocytes # (Auto) 1.8 x10^3/uL (1.0-4.8) 1.4 x10^3/uL (1.0-4.8) Monocytes # (Auto) 0.8 x10^3/uL (0.0-1.1) 0.6 x10^3/uL (0.0-1.1) Eosinophils # (Auto) 0.0 x10^3/uL (0.0-0.7) 0.1 x10^3/uL (0.0-0.7) Basophils # (Auto) 0.1 x10^3/uL (0.0-0.2) 0.0 x10^3/uL (0.0-0.2) Sodium Level 140 mmol/L (136-145) 141 mmol/L (136-145) Potassium Level 4.6 mmol/L (3.5-5.1) 4.0 mmol/L (3.5-5.1) Chloride Level 100 mmol/L (98-107) 99 mmol/L (98-107) Carbon Dioxide Level 30 mmol/L (21-32) 37 mmol/L (21-32) Anion Gap 10 (6-14) 5 (6-14) Blood Urea Nitrogen 12 mg/dL (7-20) 11 mg/dL (7-20) Creatinine 0.9 mg/dL (0.6-1.0) 0.7 mg/dL (0.6-1.0) Estimated GFR (Cockcroft-Gault) 63.0 84.2 Glucose Level 195 mg/dL (70-99) 170 mg/dL (70-99) Calcium Level 8.5 mg/dL (8.5-10.1) 8.5 mg/dL (8.5-10.1) Total Bilirubin 0.6 mg/dL (0.2-1.0) Direct Bilirubin 0.1 mg/dL (0.0-0.2) Aspartate Amino Transf (AST/SGOT) 30 U/L (15-37) Alanine Aminotransferase (ALT/SGPT) 24 U/L (14-59) Alkaline Phosphatase 111 U/L (46-116) Troponin I Quantitative 0.072 ng/mL (0.000-0.055) 0.139 ng/mL (0.000-0.055) 0.101 ng/mL (0.000-0.055) QP-Lla-J-Type Natriuretic Peptide 2221 pg/mL (0-124) Total Protein 8.1 g/dL (6.4-8.2) Albumin 3.5 g/dL (3.4-5.0) Lipase 78 U/L (73-393) Glucose (Fingerstick) 149 mg/dL (70-99) Medications Current Medications Albuterol/ Ipratropium (Duoneb) 3 ml 1X ONCE NEB Last administered on 13:59; Start 09/27/17 at 14:00; Stop 09/27/17 at 14:01; Status DC Ondansetron HCl (Zofran) 4 mg STK-MED ONCE .ROUTE ; Start 09/27/17 at 14:31; Stop 09/27/17 at 14:32; Status DC Furosemide (Lasix) 40 mg 1X ONCE IVP Last administered on 09/27/17 14:40; Start 09/27/17 at 14:45; Stop 09/27/17 at 14:46; Status DC Ondansetron HCl (Zofran) 4 mg 1X ONCE IV Last administered on 09/27/17 14:37 ; Start 09/27/17 at 14:45; Stop 09/27/17 at 14:46; Status DC Iohexol (Omnipaque 300 Mg/ml) 75 ml 1X ONCE IV Last administered on 15:17; Start 09/27/17 at 15:15; Stop 09/27/17 at 15:16; Status DC Ondansetron HCl (Zofran) 4 mg PRN Q8HRS PRN IV NAUSEA/VOMITING; Start at 15:45; Stop 09/28/17 at 15:44 Morphine Sulfate 2 mg PRN Q2HR PRN IV PAIN; Start 09/27/17 at 15:45; Stop at 15:44 Aspirin (Children'S Aspirin) 324 mg 1X ONCE PO Last administered on 16:03; Start 09/27/17 at 16:00; Stop 09/27/17 at 16:01; Status DC Aspirin (Children'S Aspirin) 81 mg DAILY08 PO Last administered on 09/28/17 09:28; Start 09/28/17 at 08:00 Vitamin D (Vitamin D3) 1,000 unit DAILY PO Last administered on 09/28/17 09: 28; Start 09/28/17 at 09:00 Acetaminophen/ Hydrocodone Bitart (Lortab 5/325) 1 tab PRN Q6HRS PRN PO PAIN Last administered on 09/28/17 10:42; Start 09/27/17 at 18:30 Metformin HCl (Glucophage Xr) 1,000 mg BIDAC PO ; Start 09/28/17 at 07:30; Stop 09/28/17 at 08:25; Status DC Nitrofurantoin Macrocrystals (Macrobid) 100 mg DAILY PO Last administered on 09:31; Start 09/28/17 at 09:00 Simvastatin (Zocor) 40 mg QHS PO Last administered on 09/27/17 21:15; Start 09/27/17 at 21:00 Duloxetine HCl (Cymbalta) 60 mg DAILY PO Last administered on 09/28/17 09:29 ; Start 09/28/17 at 09:00 Lactobacillus Rhamnosus (Culturelle) 1 cap DAILY PO Last administered on 09:28; Start 09/28/17 at 09:00 Losartan Potassium (Cozaar) 100 mg DAILY PO ; Start 09/28/17 at 09:00 Metoprolol Tartrate (Lopressor) 100 mg BID PO Last administered on 09/28/17 09:31; Start 09/27/17 at 21:00 Oxybutynin Chloride (Ditropan) 5 mg [id number] PO Last administered on 09/28/17 09:28; Start 09/27/17 at 21:00 Nifedipine (Procardia Xl) 90 mg DAILY PO Last administered on 09/28/17 09:32 ; Start 09/28/17 at 09:00 Pantoprazole Sodium (Protonix) 40 mg DAILYAC PO Last administered on 09:28; Start 09/28/17 at 07:30 Furosemide (Lasix) 40 mg [id number] IVP ; Start 09/28/17 at 09:00 Enoxaparin Sodium (Lovenox Per Pharmacy Prophylaxis Dosing) 1 each PRN DAILY PRN MC SEE COMMENTS; Start 09/27/17 at 18:30 Enoxaparin Sodium (Lovenox 40mg Syringe) 40 mg DAILY SQ Last administered on 09:33; Start 09/28/17 at 09:00 Insulin Aspart (NovoLOG) 0-7 UNITS TIDWMEALS SQ ; Start 09/28/17 at 08:00 Dextrose (Dextrose 50%-Water Syringe) 12.5 gm PRN Q15MIN PRN IV SEE COMMENTS; Start 09/27/17 at 18:45 Furosemide (Lasix) 20 mg 1X ONCE IVP ; Start 09/27/17 at 20:30; Stop at 20:37; Status DC Phytonadione (Vitamin K Ampule) 5 mg 1X ONCE SQ ; Start 09/27/17 at 20:30; Stop 09/27/17 at 20:37; Status DC Guaifenesin (Robitussin Dm) 10 ml PRN Q6HRS PRN PO COUGH; Start 09/28/17 at 08 :15 Albuterol Sulfate (Ventolin Neb Soln) 2.5 mg PRN Q4HRS PRN NEB SHORTNESS OF BREATH; Start 09/28/17 at 08:15 Metformin HCl (Glucophage Xr) 1,000 mg BIDAC PO ; Start 09/29/17 at 16:30 Info (Do NOT chart on this entry -- for MONITORING) 1 each PRN DAILY PRN MC SEE COMMENTS; Start 09/28/17 at 08:30; Stop 09/29/17 at 15:15 Active Scripts Active Reported [potassium OTC] Hydrocodone-Apap 5-325 (Hydrocodone Bit/Acetaminophen) 1 Each Tablet 1 Tab PO PRN Q6HRS PRN Macrobid 100 Mg Capsule (Nitrofurantoin Monohyd/M-Cryst) 100 Mg Capsule 100 Mg PO DAILY Probiotic (Lactobacillus Combo No.11) 1 Each Cap.sprink 1 Each PO DAILY Simvastatin 40 Mg Tablet 1 Tab PO QHS Cymbalta (Duloxetine Hcl) 60 Mg Capsule.dr 1 Cap PO DAILY Metformin Hcl Er (Metformin Hcl) 500 Mg Tab.er.24h 2 Tab PO BIDAC Metoprolol Tartrate 100 Mg Tablet 1 Tab PO BID Losartan Potassium 100 Mg Tablet 100 Mg PO DAILY Lasix (Furosemide) 20 Mg Tablet 3 Tab PO DAILY Omeprazole 40 Mg Capsule.dr 1 Cap PO DAILY Myrbetriq (Mirabegron) 50 Mg Tab.er.24h 50 Mg PO DAILY Procardia Xl (Nifedipine) 90 Mg Tab.er.24 1 Tab PO DAILY Aspirin 81 Mg Tab.chew 1 Tab PO DAILY Vitamin D3 (Cholecalciferol (Vitamin D3)) 1,000 Unit Tablet 1 Tab PO DAILY Zyrtec (Cetirizine Hcl) 10 Mg Capsule 10 Mg PO Vitals/I & O Vital Sign - Last 24 Hours 09/27/17 09/27/17 09/27/17 09/27/17 13:45 13:59 14:20 14:35 Temp 98.4 98.4 Pulse 80 80 76 Resp 20 16 16 B/P (MAP) 164/84 (110) 160/74 (102) 168/85 (112) Pulse Ox 75 96 96 95 O2 Delivery Nasal Cannula NonRebreather Mask NonRebreather Mask NonRebreather Mask O2 Flow Rate 3.0 10.0 15.0 10.0 09/27/17 09/27/17 09/27/17 09/27/17 14:50 15:05 15:30 16:00 Pulse 76 76 78 78 Resp 18 22 18 18 B/P (MAP) 159/76 (103) 154/77 (102) 154/77 (102) 181/91 (121) Pulse Ox 94 92 95 92 O2 Delivery NonRebreather Mask NonRebreather Mask NonRebreather Mask NonRebreather Mask O2 Flow Rate 10.0 10.0 10.0 10.0 09/27/17 09/27/17 09/27/17 09/27/17 16:20 16:20 16:30 17:00 Temp 98.5 98.5 Pulse 76 76 76 Resp 22 22 25 B/P (MAP) 162/78 (106) 156/78 (104) 149/73 (98) Pulse Ox 97 97 96 O2 Delivery NonRebreather Mask Non-Rebreather NonRebreather Mask NonRebreather Mask 09/27/17 09/27/17 09/27/1717 17:30 18:00 19:00 19:45 Temp 98.4 98.4 Pulse 74 74 80 Resp 23 27 27 25 B/P (MAP) 143/71 (95) 130/77 (94) 158/77 (104) Pulse Ox 95 95 95 97 O2 Delivery NonRebreather Mask NonRebreather Mask NonRebreather Mask NonRebreather Mask O2 Flow Rate 15.0 09/27/17 09/27/17 09/27/17 09/27/17 20:00 20:00 21:00 21:16 Pulse 79 76 75 Resp 20 21 B/P (MAP) 150/71 (97) 151/73 (99) 151/73 Pulse Ox 99 95 O2 Delivery Non-Rebreather NonRebreather Mask NonRebreather Mask 09/27/17 09/27/17 09/28/17 09/28/17 22:00 23:00 00:00 00:00 Temp 98.6 98.6 Pulse 62 60 60 Resp 19 16 16 B/P (MAP) 135/71 (92) 132/69 (90) 163/82 (109) Pulse Ox 97 98 97 O2 Delivery NonRebreather Mask NonRebreather Mask Nasal Cannula Nasal Cannula O2 Flow Rate 12.0 12.0 09/28/17 09/28/17 09/28/17 09/28/17 01:00 02:00 02:41 03:00 Pulse 62 70 66 Resp 15 B/P (MAP) 152/76 (101) 155/80 (105) 153/74 (100) Pulse Ox 97 94 96 95 O2 Delivery Nasal Cannula Nasal Cannula Nasal Cannula Nasal Cannula O2 Flow Rate 12.0 12.0 12.0 12.0 09/28/17 09/28/17 09/28/17 09/28/17 03:41 04:00 04:00 05:00 Temp 98.5 98.5 Pulse 65 66 Resp 20 20 23 B/P (MAP) 136/67 (90) 143/74 (97) Pulse Ox 94 94 96 O2 Delivery Nasal Cannula Nasal Cannula Nasal Cannula Nasal Cannula O2 Flow Rate 12.0 12.0 12.0 12.0 09/28/17 09/28/17 09/28/17 09/28/17 06:00 07:00 08:00 08:00 Temp 98.5 98.5 Pulse 76 68 72 Resp 25 17 B/P (MAP) 144/72 (96) 154/80 (104) 169/86 (113) Pulse Ox 95 96 95 O2 Delivery Nasal Cannula High Flow Nasal Cannula Nasal Cannula High Flow Nasal Cannula O2 Flow Rate 12.0 13.0 13.0 13.0 09/28/17 09/28/17 09/28/17 09/28/17 09:00 09:31 09:32 10:42 Pulse 72 75 75 Resp 24 28 B/P (MAP) 141/76 (97) 150/83 150/83 Pulse Ox 95 91 O2 Delivery High Flow Nasal Cannula Nasal Cannula O2 Flow Rate 13.0 13.0 Intake and Output 09/27/17 09/27/17 09/28/17 15:00 23:00 07:00 Intake Total 240 ml Balance 240 ml ROSETTE HERRERA MD Sep 28, 2017 11:07
[2017-09-28] MEDS: FUROSEMIDE 40 MG/4 ML VIAL. IVP SCH ×2 (12:05→17:54)
[2017-09-28] MEDS: LOSARTAN POTASSIUM 50 MG TABLET. PO SCH (12:05)
--- NOTE | 2017-09-28 16:19 | CARD ---
APPROVED REPORT EXAM: Two-dimensional and M-mode echocardiogram with Doppler and color Doppler. Other Information Quality : FairHR: 73bpm Rhythm : NSR INDICATION Congestive Heart Failure 2D DIMENSIONS Left Atrium(2D)4.5 (1.6-4.0cm)IVSd0.9 (0.7-1.1cm) Aortic Root(2D)2.9 (2.0-3.7cm)LVDd5.0 (3.9-5.9cm) LVOT Diameter2.1 (1.8-2.4cm)PWd0.9 (0.7-1.1cm) LVDs3.5 (2.5-4.0cm)FS (%) 30.8 % SV69.1 mlLVEF(%)58.2 (>50%) CO5.0 L/min M-Mode DIMENSIONS Aortic Cusp Exc1.52 (1.5-2.0cm) Aortic Valve AoV Peak Stanley.135.1cm/sAoV VTI29.9cm AO Peak GR.7.3mmHgLVOT VTI 25.75cm AO Mean GR.5mmHg Mitral Valve MV E Wrbylhtw116.4cm/sMV E Peak Gr.7mmHg MV DECEL [id number] A Jlsgvfti905.2cm/s MV E Mean Gr.3mmHgE/A Ratio1.1 MV A [id number] TDI Lateral E' P. V11.31cm/sMedial E' P. V12.47cm/s E/Lateral E'10.3E/Medial E'9.3 Pulmonary Valve PV Peak Ughzkggl173.7cm/s Tricuspid Valve TR P. [id number]/sRAP [id number] TR Peak Gr.[id number] LEFT VENTRICLE The left ventricle is normal size. There is normal left ventricular wall thickness. The left ventricu lar systolic function is normal and the ejection fraction is within normal range. LV ejection fractio n is 55-60%. There is normal LV segmental wall motion. No left ventricle thrombus noted on this study . There is no ventricular septal defect visualized. There is no left ventricular aneurysm. There is n o mass noted in the left ventricle. RIGHT VENTRICLE The right ventricle is normal size. There is normal right ventricular wall thickness. The right ventr icular systolic function is normal. ATRIA The left atrium is borderline dilated. The right atrium size is normal. The interatrial septum is int act with no evidence for an atrial septal defect or patent foramen ovale as noted on 2-D or Doppler i maging. AORTIC VALVE The aortic valve is normal in structure and function. Doppler and Color Flow revealed no significant aortic regurgitation. There is no significant aortic valvular stenosis. There is no aortic valvular v egetation. MITRAL VALVE The mitral valve is normal in structure and function. There is no evidence of mitral valve prolapse. There is no mitral valve stenosis. Doppler and Color-flow revealed mild mitral regurgitation. TRICUSPID VALVE The tricuspid valve is normal in structure and function. Doppler and Color Flow revealed mild to mode rate tricuspid regurgitation. There is no tricuspid valve prolapse or vegetation. There is no tricusp id valve stenosis. PULMONIC VALVE The pulmonary valve is normal in structure and function. Doppler and Color Flow revealed mild to mode rate pulmonic valvular regurgitation. GREAT VESSELS The aortic root is normal in size. The ascending aorta is normal in size. The IVC is normal in size a nd collapses <50% with inspiration. PERICARDIAL EFFUSION There is no pleural effusion. There is no evidence of significant pericardial effusion. Critical Notification Critical Value: No <Conclusion> The left ventricle is normal size. The left ventricular systolic function is normal and the ejection fraction is within normal range. LV ejection fraction is 55-60%. There is no significant aortic valvular stenosis. Doppler and Color Flow revealed no significant aortic regurgitation. Doppler and Color-flow revealed mild mitral regurgitation. Doppler and Color Flow revealed mild to moderate tricuspid regurgitation.
--- NOTE | 2017-09-28 16:42 | PDOC2 ---
CONSULT Date of Consult Date of Consult DATE: 09/28/17 TIME: 16:36 Reason for Consult Reason for Consult: Probable heart failure Referring Physician Referring Physician: Dr. Vyas Identification/Chief Complaint Chief Complaint SOB Problems: Source Source: Patient History of Present Illness Reason for Visit: The patient is a pleasant 62-year-old female who reports relatively abrupt onset of shortness of breath yesterday. The patient was brought to the emergency room and initial evaluation was positive for acute hypoxic respiratory failure. She has been treated with pulmonary medications as well as mild diuresis. She reports feeling better this morning. Her chest x-ray shows cardio medically and interstitial edema. Her EKG shows a sinus rhythm with nonspecific ST-T wave changes. Troponin is minimally elevated bilirubin at 0.101. She is feeling better this morning. She denies any chest pain, dizziness or lightheadedness. She denies any history of coronary artery disease but does report a history of hypertension, diabetes and COPD. Past Medical History Cardiovascular: HTN Pulmonary: Other (brown lung disease) GI: No pertinent hx Psych: Depression Endocrine: Diabetes Past Surgical History Past Surgical History: Appendectomy, Cholecystectomy, Tubal Ligation, Tonsillectomy Family History Family History: Hypertension, Other (lung disease from [employer]) Social History No ALCOHOL: rare Drugs: None Current Problem List Problem List Problems Medical Problems: (1) SOB (shortness of breath) Status: Acute Current Medications Current Medications Current Medications Albuterol/ Ipratropium (Duoneb) 3 ml 1X ONCE NEB Last administered on 13:59; Start 09/27/17 at 14:00; Stop 09/27/17 at 14:01; Status DC Ondansetron HCl (Zofran) 4 mg STK-MED ONCE .ROUTE ; Start 09/27/17 at 14:31; Stop 09/27/17 at 14:32; Status DC Furosemide (Lasix) 40 mg 1X ONCE IVP Last administered on 09/27/17 14:40; Start 09/27/17 at 14:45; Stop 09/27/17 at 14:46; Status DC Ondansetron HCl (Zofran) 4 mg 1X ONCE IV Last administered on 09/27/17 14:37 ; Start 09/27/17 at 14:45; Stop 09/27/17 at 14:46; Status DC Iohexol (Omnipaque 300 Mg/ml) 75 ml 1X ONCE IV Last administered on 15:17; Start 09/27/17 at 15:15; Stop 09/27/17 at 15:16; Status DC Ondansetron HCl (Zofran) 4 mg PRN Q8HRS PRN IV NAUSEA/VOMITING; Start at 15:45; Stop 09/28/17 at 15:44; Status DC Morphine Sulfate 2 mg PRN Q2HR PRN IV PAIN; Start 09/27/17 at 15:45; Stop at 15:44; Status DC Aspirin (Children'S Aspirin) 324 mg 1X ONCE PO Last administered on 16:03; Start 09/27/17 at 16:00; Stop 09/27/17 at 16:01; Status DC Aspirin (Children'S Aspirin) 81 mg DAILY08 PO Last administered on 09/28/17 09:28; Start 09/28/17 at 08:00 Vitamin D (Vitamin D3) 1,000 unit DAILY PO Last administered on 09/28/17 09: 28; Start 09/28/17 at 09:00 Acetaminophen/ Hydrocodone Bitart (Lortab 5/325) 1 tab PRN Q6HRS PRN PO PAIN Last administered on 09/28/17 10:42; Start 09/27/17 at 18:30 Metformin HCl (Glucophage Xr) 1,000 mg BIDAC PO ; Start 09/28/17 at 07:30; Stop 09/28/17 at 08:25; Status DC Nitrofurantoin Macrocrystals (Macrobid) 100 mg DAILY PO Last administered on 09:31; Start 09/28/17 at 09:00 Simvastatin (Zocor) 40 mg QHS PO Last administered on 09/27/17 21:15; Start 09/27/17 at 21:00 Duloxetine HCl (Cymbalta) 60 mg DAILY PO Last administered on 09/28/17 09:29 ; Start 09/28/17 at 09:00 Lactobacillus Rhamnosus (Culturelle) 1 cap DAILY PO Last administered on 09:28; Start 09/28/17 at 09:00 Losartan Potassium (Cozaar) 100 mg DAILY PO Last administered on 09/28/17 12: 05; Start 09/28/17 at 09:00 Metoprolol Tartrate (Lopressor) 100 mg BID PO Last administered on 09/28/17 09:31; Start 09/27/17 at 21:00 Oxybutynin Chloride (Ditropan) 5 mg [id number] PO Last administered on 09/28/17 15:33; Start 09/27/17 at 21:00 Nifedipine (Procardia Xl) 90 mg DAILY PO Last administered on 09/28/17 09:32 ; Start 09/28/17 at 09:00 Pantoprazole Sodium (Protonix) 40 mg DAILYAC PO Last administered on 09:28; Start 09/28/17 at 07:30 Furosemide (Lasix) 40 mg [id number] IVP Last administered on 09/28/17 12:05; Start 09/28/17 at 09:00 Enoxaparin Sodium (Lovenox Per Pharmacy Prophylaxis Dosing) 1 each PRN DAILY PRN MC SEE COMMENTS; Start 09/27/17 at 18:30 Enoxaparin Sodium (Lovenox 40mg Syringe) 40 mg DAILY SQ Last administered on 09:33; Start 09/28/17 at 09:00 Insulin Aspart (NovoLOG) 0-7 UNITS TIDWMEALS SQ Last administered on 12:09; Start 09/28/17 at 08:00 Dextrose (Dextrose 50%-Water Syringe) 12.5 gm PRN Q15MIN PRN IV SEE COMMENTS; Start 09/27/17 at 18:45 Furosemide (Lasix) 20 mg 1X ONCE IVP ; Start 09/27/17 at 20:30; Stop at 20:37; Status DC Phytonadione (Vitamin K Ampule) 5 mg 1X ONCE SQ ; Start 09/27/17 at 20:30; Stop 09/27/17 at 20:37; Status DC Guaifenesin (Robitussin Dm) 10 ml PRN Q6HRS PRN PO COUGH; Start 09/28/17 at 08 :15 Albuterol Sulfate (Ventolin Neb Soln) 2.5 mg PRN Q4HRS PRN NEB SHORTNESS OF BREATH; Start 09/28/17 at 08:15 Metformin HCl (Glucophage Xr) 1,000 mg BIDAC PO ; Start 09/29/17 at 16:30 Info (Do NOT chart on this entry -- for MONITORING) 1 each PRN DAILY PRN MC SEE COMMENTS; Start 09/28/17 at 08:30; Stop 09/29/17 at 15:15 Active Scripts Active Reported [potassium OTC] Hydrocodone-Apap 5-325 (Hydrocodone Bit/Acetaminophen) 1 Each Tablet 1 Tab PO PRN Q6HRS PRN Macrobid 100 Mg Capsule (Nitrofurantoin Monohyd/M-Cryst) 100 Mg Capsule 100 Mg PO DAILY Probiotic (Lactobacillus Combo No.11) 1 Each Cap.sprink 1 Each PO DAILY Simvastatin 40 Mg Tablet 1 Tab PO QHS Cymbalta (Duloxetine Hcl) 60 Mg Capsule.dr 1 Cap PO DAILY Metformin Hcl Er (Metformin Hcl) 500 Mg Tab.er.24h 2 Tab PO BIDAC Metoprolol Tartrate 100 Mg Tablet 1 Tab PO BID Losartan Potassium 100 Mg Tablet 100 Mg PO DAILY Lasix (Furosemide) 20 Mg Tablet 3 Tab PO DAILY Omeprazole 40 Mg Capsule.dr 1 Cap PO DAILY Myrbetriq (Mirabegron) 50 Mg Tab.er.24h 50 Mg PO DAILY Procardia Xl (Nifedipine) 90 Mg Tab.er.24 1 Tab PO DAILY Aspirin 81 Mg Tab.chew 1 Tab PO DAILY Vitamin D3 (Cholecalciferol (Vitamin D3)) 1,000 Unit Tablet 1 Tab PO DAILY Zyrtec (Cetirizine Hcl) 10 Mg Capsule 10 Mg PO Allergies Allergies: Coded Allergies: No Known Drug Allergies (Unverified , 09/27/17) ROS General: YES: Fatigue Respiratory: YES: Shortness of breath, SOB with excertion Physical Exam General: mild distress HEENT: Atraumatic Lungs: Other (decreased breath sounds) Heart: Regular rate Abdomen: Normal bowel sounds Vitals VITALS Vital Signs Date Time Temp Pulse Resp B/P (MAP) Pulse Ox O2 Delivery O2 Flow Rate FiO2 09/28/17 14:45 96.8 71 20 141/69 (93) 92 Nasal Cannula 13.0 96.8 Labs Labs Laboratory Tests Test 09/27/17 13:55 09/27/17 21:10 09/28/17 03:30 09/28/17 07:54 White Blood Count 12.3 x10^3/uL (4.0-11.0) 10.6 x10^3/uL (4.0-11.0) Red Blood Count 4.67 x10^6/uL (3.50-5.40) 4.37 x10^6/uL (3.50-5.40) Hemoglobin 13.6 g/dL (12.0-15.5) 12.7 g/dL (12.0-15.5) Hematocrit 41.4 % (36.0-47.0) 38.7 % (36.0-47.0) Mean Corpuscular Volume 89 fL (79-100) 89 fL (79-100) Mean Corpuscular Hemoglobin 29 pg (25-35) 29 pg (25-35) Mean Corpuscular Hemoglobin Concent 33 g/dL (31-37) 33 g/dL (31-37) Red Cell Distribution Width 14.1 % (11.5-14.5) 14.7 % (11.5-14.5) Platelet Count 330 x10^3/uL (140-400) 310 x10^3/uL (140-400) Neutrophils (%) (Auto) 77 % (31-73) 80 % (31-73) Lymphocytes (%) (Auto) 15 % (24-48) 14 % (24-48) Monocytes (%) (Auto) 7 % (0-9) 6 % (0-9) Eosinophils (%) (Auto) 0 % (0-3) 1 % (0-3) Basophils (%) (Auto) 1 % (0-3) 0 % (0-3) Neutrophils # (Auto) 9.5 x10^3uL (1.8-7.7) 8.4 x10^3uL (1.8-7.7) Lymphocytes # (Auto) 1.8 x10^3/uL (1.0-4.8) 1.4 x10^3/uL (1.0-4.8) Monocytes # (Auto) 0.8 x10^3/uL (0.0-1.1) 0.6 x10^3/uL (0.0-1.1) Eosinophils # (Auto) 0.0 x10^3/uL (0.0-0.7) 0.1 x10^3/uL (0.0-0.7) Basophils # (Auto) 0.1 x10^3/uL (0.0-0.2) 0.0 x10^3/uL (0.0-0.2) Sodium Level 140 mmol/L (136-145) 141 mmol/L (136-145) Potassium Level 4.6 mmol/L (3.5-5.1) 4.0 mmol/L (3.5-5.1) Chloride Level 100 mmol/L (98-107) 99 mmol/L (98-107) Carbon Dioxide Level 30 mmol/L (21-32) 37 mmol/L (21-32) Anion Gap 10 (6-14) 5 (6-14) Blood Urea Nitrogen 12 mg/dL (7-20) 11 mg/dL (7-20) Creatinine 0.9 mg/dL (0.6-1.0) 0.7 mg/dL (0.6-1.0) Estimated GFR (Cockcroft-Gault) 63.0 84.2 Glucose Level 195 mg/dL (70-99) 170 mg/dL (70-99) Calcium Level 8.5 mg/dL (8.5-10.1) 8.5 mg/dL (8.5-10.1) Total Bilirubin 0.6 mg/dL (0.2-1.0) Direct Bilirubin 0.1 mg/dL (0.0-0.2) Aspartate Amino Transf (AST/SGOT) 30 U/L (15-37) Alanine Aminotransferase (ALT/SGPT) 24 U/L (14-59) Alkaline Phosphatase 111 U/L (46-116) Troponin I Quantitative 0.072 ng/mL (0.000-0.055) 0.139 ng/mL (0.000-0.055) 0.101 ng/mL (0.000-0.055) WG-Bny-R-Type Natriuretic Peptide 2221 pg/mL (0-124) Total Protein 8.1 g/dL (6.4-8.2) Albumin 3.5 g/dL (3.4-5.0) Lipase 78 U/L (73-393) Hemoglobin A1c 7.1 % (4.8-5.6) Glucose (Fingerstick) 149 mg/dL (70-99) Test 09/28/17 11:36 09/28/17 16:20 Glucose (Fingerstick) 201 mg/dL (70-99) 133 mg/dL (70-99) Laboratory Tests Test 09/27/17 21:10 09/28/17 03:30 09/28/17 07:54 09/28/17 11:36 Troponin I Quantitative 0.139 ng/mL (0.000-0.055) 0.101 ng/mL (0.000-0.055) White Blood Count 10.6 x10^3/uL (4.0-11.0) Red Blood Count 4.37 x10^6/uL (3.50-5.40) Hemoglobin 12.7 g/dL (12.0-15.5) Hematocrit 38.7 % (36.0-47.0) Mean Corpuscular Volume 89 fL (79-100) Mean Corpuscular Hemoglobin 29 pg (25-35) Mean Corpuscular Hemoglobin Concent 33 g/dL (31-37) Red Cell Distribution Width 14.7 % (11.5-14.5) Platelet Count 310 x10^3/uL (140-400) Neutrophils (%) (Auto) 80 % (31-73) Lymphocytes (%) (Auto) 14 % (24-48) Monocytes (%) (Auto) 6 % (0-9) Eosinophils (%) (Auto) 1 % (0-3) Basophils (%) (Auto) 0 % (0-3) Neutrophils # (Auto) 8.4 x10^3uL (1.8-7.7) Lymphocytes # (Auto) 1.4 x10^3/uL (1.0-4.8) Monocytes # (Auto) 0.6 x10^3/uL (0.0-1.1) Eosinophils # (Auto) 0.1 x10^3/uL (0.0-0.7) Basophils # (Auto) 0.0 x10^3/uL (0.0-0.2) Sodium Level 141 mmol/L (136-145) Potassium Level 4.0 mmol/L (3.5-5.1) Chloride Level 99 mmol/L (98-107) Carbon Dioxide Level 37 mmol/L (21-32) Anion Gap 5 (6-14) Blood Urea Nitrogen 11 mg/dL (7-20) Creatinine 0.7 mg/dL (0.6-1.0) Estimated GFR (Cockcroft-Gault) 84.2 Glucose Level 170 mg/dL (70-99) Hemoglobin A1c 7.1 % (4.8-5.6) Calcium Level 8.5 mg/dL (8.5-10.1) Glucose (Fingerstick) 149 mg/dL (70-99) 201 mg/dL (70-99) Test 09/28/17 16:20 Glucose (Fingerstick) 133 mg/dL (70-99) Images Images Chest x-ray shows cardiomegaly and interstitial edema. Assessment/Plan Assessment/Plan 1. Acute hypoxic respiratory failure. After treatment overnight the patient is feeling better. 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 In addition to this her symptoms suggest possible heart failure with cardiomegaly on chest x-ray. At this time will continue on point medications and the patient is being followed by the pulmonary service. From a cardiac viewpoint will monitor lab and check an echocardiogram today. 2. Possible acute on chronic heart failure. As noted above the patient being treated by the pulmonary service. We'll attempt mild diuresis and echocardiogram today. 3. Minimally elevated troponin. Troponin level 0.101. No acute ischemic EKG changes. We'll continue present medications and recheck a morning troponin. 4. Hypertension. Blood pressures under better control. Will monitor and adjust medications as needed. 5. Diabetes mellitus. As per the primary service. Thank you for allowing us to participate in the care of your pleasant patient. ELZA HYATT MD Sep 28, 2017 16:42
[2017-09-28] MEDS ORDERED: cloNIDine HCL 0.1 MG TABLET PO PRN (21:45)
[2017-09-28] MEDS: SIMVASTATIN 40 MG TABLET. PO SCH (22:58)
[2017-09-29 03:00] VITALS: BP 138/70
[2017-09-29 04:44] LABS: CREATININE 0.7 mg/dL (0.6-1.0); GFR 84.2; POTASSIUM 3.4 mmol/L (3.5-5.1)
[2017-09-29 04:59] LABS: CHOLESTEROL/HDL RATIO 3.3
[2017-09-29 07:00] VITALS: BP 140/63
[2017-09-29] MEDS: INSULIN ASPART 300 UNITS/3 ML INSULN.PEN SQ SCH ×3 (08:00→17:00)
--- NOTE | 2017-09-29 08:38 | PDOC ---
PULMONARY PROGRESS NOTES Subjective feels better wants to go home Vitals Vital Signs Date Time Temp Pulse Resp B/P (MAP) Pulse Ox O2 Delivery O2 Flow Rate FiO2 09/29/17 07:00 97.7 60 17 140/63 (88) 94 Nasal Cannula 10.0 97.7 ROS: No Nausea, No Chest Pain, No Abdominal Pain, No Increase Cough General: Alert, Oriented X4, No acute distress Lungs: Clear Cardiovascular: S1 Abdomen: Soft Neuro Exam: Alert Extremities: Other (trace edema) Skin: Warm Labs Laboratory Tests Test 09/27/17 13:55 09/27/17 16:04 09/27/17 21:10 09/28/17 03:30 White Blood Count 12.3 x10^3/uL (4.0-11.0) 10.6 x10^3/uL (4.0-11.0) Red Blood Count 4.67 x10^6/uL (3.50-5.40) 4.37 x10^6/uL (3.50-5.40) Hemoglobin 13.6 g/dL (12.0-15.5) 12.7 g/dL (12.0-15.5) Hematocrit 41.4 % (36.0-47.0) 38.7 % (36.0-47.0) Mean Corpuscular Volume 89 fL (79-100) 89 fL (79-100) Mean Corpuscular Hemoglobin 29 pg (25-35) 29 pg (25-35) Mean Corpuscular Hemoglobin Concent 33 g/dL (31-37) 33 g/dL (31-37) Red Cell Distribution Width 14.1 % (11.5-14.5) 14.7 % (11.5-14.5) Platelet Count 330 x10^3/uL (140-400) 310 x10^3/uL (140-400) Neutrophils (%) (Auto) 77 % (31-73) 80 % (31-73) Lymphocytes (%) (Auto) 15 % (24-48) 14 % (24-48) Monocytes (%) (Auto) 7 % (0-9) 6 % (0-9) Eosinophils (%) (Auto) 0 % (0-3) 1 % (0-3) Basophils (%) (Auto) 1 % (0-3) 0 % (0-3) Neutrophils # (Auto) 9.5 x10^3uL (1.8-7.7) 8.4 x10^3uL (1.8-7.7) Lymphocytes # (Auto) 1.8 x10^3/uL (1.0-4.8) 1.4 x10^3/uL (1.0-4.8) Monocytes # (Auto) 0.8 x10^3/uL (0.0-1.1) 0.6 x10^3/uL (0.0-1.1) Eosinophils # (Auto) 0.0 x10^3/uL (0.0-0.7) 0.1 x10^3/uL (0.0-0.7) Basophils # (Auto) 0.1 x10^3/uL (0.0-0.2) 0.0 x10^3/uL (0.0-0.2) Sodium Level 140 mmol/L (136-145) 141 mmol/L (136-145) Potassium Level 4.6 mmol/L (3.5-5.1) 4.0 mmol/L (3.5-5.1) Chloride Level 100 mmol/L (98-107) 99 mmol/L (98-107) Carbon Dioxide Level 30 mmol/L (21-32) 37 mmol/L (21-32) Anion Gap 10 (6-14) 5 (6-14) Blood Urea Nitrogen 12 mg/dL (7-20) 11 mg/dL (7-20) Creatinine 0.9 mg/dL (0.6-1.0) 0.7 mg/dL (0.6-1.0) Estimated GFR (Cockcroft-Gault) 63.0 84.2 Glucose Level 195 mg/dL (70-99) 170 mg/dL (70-99) Calcium Level 8.5 mg/dL (8.5-10.1) 8.5 mg/dL (8.5-10.1) Total Bilirubin 0.6 mg/dL (0.2-1.0) Direct Bilirubin 0.1 mg/dL (0.0-0.2) Aspartate Amino Transf (AST/SGOT) 30 U/L (15-37) Alanine Aminotransferase (ALT/SGPT) 24 U/L (14-59) Alkaline Phosphatase 111 U/L (46-116) Troponin I Quantitative 0.072 ng/mL (0.000-0.055) 0.139 ng/mL (0.000-0.055) 0.101 ng/mL (0.000-0.055) ZY-Ewd-T-Type Natriuretic Peptide 2221 pg/mL (0-124) Total Protein 8.1 g/dL (6.4-8.2) Albumin 3.5 g/dL (3.4-5.0) Lipase 78 U/L (73-393) Nasal Screen MRSA (PCR) Negative (Negative) Hemoglobin A1c 7.1 % (4.8-5.6) Test 09/28/17 07:54 09/28/17 09:30 09/28/17 11:36 09/28/17 16:20 Glucose (Fingerstick) 149 mg/dL (70-99) 201 mg/dL (70-99) 133 mg/dL (70-99) Clostridium difficile Toxin (PCR) Negative (Negative) Test 09/28/17 21:02 09/29/17 03:50 09/29/17 07:25 Glucose (Fingerstick) 172 mg/dL (70-99) 139 mg/dL (70-99) Sodium Level 141 mmol/L (136-145) Potassium Level 3.4 mmol/L (3.5-5.1) Chloride Level 98 mmol/L (98-107) Carbon Dioxide Level 37 mmol/L (21-32) Anion Gap 6 (6-14) Blood Urea Nitrogen 9 mg/dL (7-20) Creatinine 0.7 mg/dL (0.6-1.0) Estimated GFR (Cockcroft-Gault) 84.2 Glucose Level 137 mg/dL (70-99) Calcium Level 9.0 mg/dL (8.5-10.1) Troponin I Quantitative 0.043 ng/mL (0.000-0.055) Triglycerides Level 138 mg/dL (0-150) Cholesterol Level 153 mg/dL (0-200) LDL Cholesterol, Calculated 79 mg/dL (0-100) VLDL Cholesterol, Calculated 28 mg/dL (0-40) Non-HDL Cholesterol Calculated 107 mg/dL (0-129) HDL Cholesterol 46 mg/dL (40-60) Cholesterol/HDL Ratio 3.3 Laboratory Tests Test 09/28/17 09:30 09/28/17 11:36 09/28/17 16:20 09/28/17 21:02 Clostridium difficile Toxin (PCR) Negative (Negative) Glucose (Fingerstick) 201 mg/dL (70-99) 133 mg/dL (70-99) 172 mg/dL (70-99) Test 09/29/17 03:50 09/29/17 07:25 Sodium Level 141 mmol/L (136-145) Potassium Level 3.4 mmol/L (3.5-5.1) Chloride Level 98 mmol/L (98-107) Carbon Dioxide Level 37 mmol/L (21-32) Anion Gap 6 (6-14) Blood Urea Nitrogen 9 mg/dL (7-20) Creatinine 0.7 mg/dL (0.6-1.0) Estimated GFR (Cockcroft-Gault) 84.2 Glucose Level 137 mg/dL (70-99) Calcium Level 9.0 mg/dL (8.5-10.1) Troponin I Quantitative 0.043 ng/mL (0.000-0.055) Triglycerides Level 138 mg/dL (0-150) Cholesterol Level 153 mg/dL (0-200) LDL Cholesterol, Calculated 79 mg/dL (0-100) VLDL Cholesterol, Calculated 28 mg/dL (0-40) Non-HDL Cholesterol Calculated 107 mg/dL (0-129) HDL Cholesterol 46 mg/dL (40-60) Cholesterol/HDL Ratio 3.3 Glucose (Fingerstick) 139 mg/dL (70-99) Medications Active Scripts Medications Dose Route/Sig Max Daily Dose Days Date Category [potassium OTC] 09/27/17 Reported Hydrocodone-Apap 5-325 (Hydrocodone Bit/Acetaminophen) 1 Each Tablet 1 Tab PO PRN Q6HRS PRN 09/27/17 Reported Macrobid 100 Mg Capsule (Nitrofurantoin Monohyd/M-Cryst) 100 Mg Capsule 100 Mg PO DAILY 09/27/17 Reported Probiotic (Lactobacillus Combo No.11) 1 Each Cap.sprink 1 Each PO DAILY 09/27/17 Reported Simvastatin 40 Mg Tablet 1 Tab PO QHS 09/27/17 Reported Cymbalta (Duloxetine Hcl) 60 Mg Capsule.dr 1 Cap PO DAILY 09/27/17 Reported Metformin Hcl Er (Metformin Hcl) 500 Mg Tab.er.24h 2 Tab PO BIDAC 09/27/17 Reported Metoprolol Tartrate 100 Mg Tablet 1 Tab PO BID 09/27/17 Reported Losartan Potassium 100 Mg Tablet 100 Mg PO DAILY 09/27/17 Reported Lasix (Furosemide) 20 Mg Tablet 3 Tab PO DAILY 09/27/17 Reported Omeprazole 40 Mg Capsule.dr 1 Cap PO DAILY 09/27/17 Reported Myrbetriq (Mirabegron) 50 Mg Tab.er.24h 50 Mg PO DAILY 09/27/17 Reported Procardia Xl (Nifedipine) 90 Mg Tab.er.24 1 Tab PO DAILY 09/27/17 Reported Aspirin 81 Mg Tab.chew 1 Tab PO DAILY 09/27/17 Reported Vitamin D3 (Cholecalciferol (Vitamin D3)) 1,000 Unit Tablet 1 Tab PO DAILY 09/27/17 Reported Zyrtec (Cetirizine Hcl) 10 Mg Capsule 10 Mg PO 09/27/17 Reported Impression . 1. Acute hypoxic respiratory failure secondary to most likely congestive heart failure. 2. Clinically, less likely pneumonia. 3. Abnormal CT chest and findings are more consistent with congestive heart failure rather than pneumonia. 4. No significant history of tobacco use. Plan . 1. Continue with present oxygen. 2. Continue diuresis. 3. Follow chest x-ray as needed 4. Wean FiO2 once saturation stays above 94%. 5. Bronchodilators p.r.n. 6. Echocardiogram. 7. dc plans per cardiology TEJAS YEH MD Sep 29, 2017 08:38
[2017-09-29] MEDS: OXYBUTYNIN CHLORIDE 5 MG TABLET PO SCH ×3 (09:00→20:53)
[2017-09-29] MEDS: PANTOPRAZOLE 40 MG TABLET.DR. PO SCH (09:00)
[2017-09-29] MEDS: METOPROLOL TART IMMED RELEASE 50 MG TABLET. PO SCH ×2 (09:01→20:54)
[2017-09-29] MEDS: LACTOBACILLUS RHAMNOSUS GG 1 CAPSULE. PO SCH (09:01)
[2017-09-29] MEDS: FUROSEMIDE 40 MG/4 ML VIAL. IVP SCH (09:02)
[2017-09-29] MEDS: CHOLECALCIFEROL (VITAMIN D3) 1,000 UNIT TABLET PO SCH (09:02)
[2017-09-29] MEDS: LOSARTAN POTASSIUM 50 MG TABLET. PO SCH (09:02)
[2017-09-29] MEDS: NITROFURANTOIN MONOHYD/M-CRYST 100 MG CAPSULE. PO SCH (09:02)
[2017-09-29] MEDS: ASPIRIN CHEWABLE 81 MG TABLET. PO SCH (09:02)
[2017-09-29] MEDS: DULoxetine HCL 30 MG CAPSULE.DR PO SCH (09:03)
[2017-09-29] MEDS: ENOXAPARIN 40 MG/0.4 ML SYRINGE. SQ SCH (09:03)
--- NOTE | 2017-09-29 10:16 | PDOC ---
PROGRESS NOTES Chief Complaint Chief Complaint acute on chronic hypoxic respiratory failure, on 3 liters at baseline at home CHF acute on chronic diastolic failure clinically, this is not supported by Echo results obesity, BMI 38 htn Dm2 History of Present Illness History of Present Illness Breathing better out of ICU still on 8 liters nasal cannula, Chest x-ray does show some minimal pleural effusion and interstitial edema. Echo showed EF 55% Troponin peaked at 0.1, now back down can dc if able to tolerate less than 6 liters NC Vitals Vitals Vital Signs Date Time Temp Pulse Resp B/P (MAP) Pulse Ox O2 Delivery O2 Flow Rate FiO2 09/29/17 09:02 60 140/63 09/29/17 07:00 97.7 17 94 Nasal Cannula 10.0 97.7 Physical Exam General: Alert, Oriented X3, Cooperative, No acute distress Heart: Regular rate, No murmurs Lungs: Clear, Other (good vol) Abdomen: Normal bowel sounds Extremities: No clubbing, Normal pulses, Other (2+ LE edema pedal ) Skin: No rashes, No breakdown Labs LABS Laboratory Tests Test 09/28/17 11:36 09/28/17 16:20 09/28/17 21:02 09/29/17 03:50 Glucose (Fingerstick) 201 mg/dL (70-99) 133 mg/dL (70-99) 172 mg/dL (70-99) Sodium Level 141 mmol/L (136-145) Potassium Level 3.4 mmol/L (3.5-5.1) Chloride Level 98 mmol/L (98-107) Carbon Dioxide Level 37 mmol/L (21-32) Anion Gap 6 (6-14) Blood Urea Nitrogen 9 mg/dL (7-20) Creatinine 0.7 mg/dL (0.6-1.0) Estimated GFR (Cockcroft-Gault) 84.2 Glucose Level 137 mg/dL (70-99) Calcium Level 9.0 mg/dL (8.5-10.1) Troponin I Quantitative 0.043 ng/mL (0.000-0.055) Triglycerides Level 138 mg/dL (0-150) Cholesterol Level 153 mg/dL (0-200) LDL Cholesterol, Calculated 79 mg/dL (0-100) VLDL Cholesterol, Calculated 28 mg/dL (0-40) Non-HDL Cholesterol Calculated 107 mg/dL (0-129) HDL Cholesterol 46 mg/dL (40-60) Cholesterol/HDL Ratio 3.3 Test 09/29/17 07:25 Glucose (Fingerstick) 139 mg/dL (70-99) Review of Systems Review of Systems no nv../d Assessment and Plan Assessmemt and Plan Problems Medical Problems: (1) SOB (shortness of breath) Status: Acute Problems: Comment Review of Relevant I have reviewed the following items rayna (where applicable) has been applied. Labs Laboratory Tests Test 09/27/17 13:55 09/27/17 16:04 09/27/17 21:10 09/28/17 03:30 White Blood Count 12.3 x10^3/uL (4.0-11.0) 10.6 x10^3/uL (4.0-11.0) Red Blood Count 4.67 x10^6/uL (3.50-5.40) 4.37 x10^6/uL (3.50-5.40) Hemoglobin 13.6 g/dL (12.0-15.5) 12.7 g/dL (12.0-15.5) Hematocrit 41.4 % (36.0-47.0) 38.7 % (36.0-47.0) Mean Corpuscular Volume 89 fL (79-100) 89 fL (79-100) Mean Corpuscular Hemoglobin 29 pg (25-35) 29 pg (25-35) Mean Corpuscular Hemoglobin Concent 33 g/dL (31-37) 33 g/dL (31-37) Red Cell Distribution Width 14.1 % (11.5-14.5) 14.7 % (11.5-14.5) Platelet Count 330 x10^3/uL (140-400) 310 x10^3/uL (140-400) Neutrophils (%) (Auto) 77 % (31-73) 80 % (31-73) Lymphocytes (%) (Auto) 15 % (24-48) 14 % (24-48) Monocytes (%) (Auto) 7 % (0-9) 6 % (0-9) Eosinophils (%) (Auto) 0 % (0-3) 1 % (0-3) Basophils (%) (Auto) 1 % (0-3) 0 % (0-3) Neutrophils # (Auto) 9.5 x10^3uL (1.8-7.7) 8.4 x10^3uL (1.8-7.7) Lymphocytes # (Auto) 1.8 x10^3/uL (1.0-4.8) 1.4 x10^3/uL (1.0-4.8) Monocytes # (Auto) 0.8 x10^3/uL (0.0-1.1) 0.6 x10^3/uL (0.0-1.1) Eosinophils # (Auto) 0.0 x10^3/uL (0.0-0.7) 0.1 x10^3/uL (0.0-0.7) Basophils # (Auto) 0.1 x10^3/uL (0.0-0.2) 0.0 x10^3/uL (0.0-0.2) Sodium Level 140 mmol/L (136-145) 141 mmol/L (136-145) Potassium Level 4.6 mmol/L (3.5-5.1) 4.0 mmol/L (3.5-5.1) Chloride Level 100 mmol/L (98-107) 99 mmol/L (98-107) Carbon Dioxide Level 30 mmol/L (21-32) 37 mmol/L (21-32) Anion Gap 10 (6-14) 5 (6-14) Blood Urea Nitrogen 12 mg/dL (7-20) 11 mg/dL (7-20) Creatinine 0.9 mg/dL (0.6-1.0) 0.7 mg/dL (0.6-1.0) Estimated GFR (Cockcroft-Gault) 63.0 84.2 Glucose Level 195 mg/dL (70-99) 170 mg/dL (70-99) Calcium Level 8.5 mg/dL (8.5-10.1) 8.5 mg/dL (8.5-10.1) Total Bilirubin 0.6 mg/dL (0.2-1.0) Direct Bilirubin 0.1 mg/dL (0.0-0.2) Aspartate Amino Transf (AST/SGOT) 30 U/L (15-37) Alanine Aminotransferase (ALT/SGPT) 24 U/L (14-59) Alkaline Phosphatase 111 U/L (46-116) Troponin I Quantitative 0.072 ng/mL (0.000-0.055) 0.139 ng/mL (0.000-0.055) 0.101 ng/mL (0.000-0.055) XJ-Ogr-U-Type Natriuretic Peptide 2221 pg/mL (0-124) Total Protein 8.1 g/dL (6.4-8.2) Albumin 3.5 g/dL (3.4-5.0) Lipase 78 U/L (73-393) Nasal Screen MRSA (PCR) Negative (Negative) Hemoglobin A1c 7.1 % (4.8-5.6) Test 09/28/17 07:54 09/28/17 09:30 09/28/17 11:36 09/28/17 16:20 Glucose (Fingerstick) 149 mg/dL (70-99) 201 mg/dL (70-99) 133 mg/dL (70-99) Clostridium difficile Toxin (PCR) Negative (Negative) Test 09/28/17 21:02 09/29/17 03:50 09/29/17 07:25 Glucose (Fingerstick) 172 mg/dL (70-99) 139 mg/dL (70-99) Sodium Level 141 mmol/L (136-145) Potassium Level 3.4 mmol/L (3.5-5.1) Chloride Level 98 mmol/L (98-107) Carbon Dioxide Level 37 mmol/L (21-32) Anion Gap 6 (6-14) Blood Urea Nitrogen 9 mg/dL (7-20) Creatinine 0.7 mg/dL (0.6-1.0) Estimated GFR (Cockcroft-Gault) 84.2 Glucose Level 137 mg/dL (70-99) Calcium Level 9.0 mg/dL (8.5-10.1) Troponin I Quantitative 0.043 ng/mL (0.000-0.055) Triglycerides Level 138 mg/dL (0-150) Cholesterol Level 153 mg/dL (0-200) LDL Cholesterol, Calculated 79 mg/dL (0-100) VLDL Cholesterol, Calculated 28 mg/dL (0-40) Non-HDL Cholesterol Calculated 107 mg/dL (0-129) HDL Cholesterol 46 mg/dL (40-60) Cholesterol/HDL Ratio 3.3 Laboratory Tests Test 09/28/17 11:36 09/28/17 16:20 09/28/17 21:02 09/29/17 03:50 Glucose (Fingerstick) 201 mg/dL (70-99) 133 mg/dL (70-99) 172 mg/dL (70-99) Sodium Level 141 mmol/L (136-145) Potassium Level 3.4 mmol/L (3.5-5.1) Chloride Level 98 mmol/L (98-107) Carbon Dioxide Level 37 mmol/L (21-32) Anion Gap 6 (6-14) Blood Urea Nitrogen 9 mg/dL (7-20) Creatinine 0.7 mg/dL (0.6-1.0) Estimated GFR (Cockcroft-Gault) 84.2 Glucose Level 137 mg/dL (70-99) Calcium Level 9.0 mg/dL (8.5-10.1) Troponin I Quantitative 0.043 ng/mL (0.000-0.055) Triglycerides Level 138 mg/dL (0-150) Cholesterol Level 153 mg/dL (0-200) LDL Cholesterol, Calculated 79 mg/dL (0-100) VLDL Cholesterol, Calculated 28 mg/dL (0-40) Non-HDL Cholesterol Calculated 107 mg/dL (0-129) HDL Cholesterol 46 mg/dL (40-60) Cholesterol/HDL Ratio 3.3 Test 09/29/17 07:25 Glucose (Fingerstick) 139 mg/dL (70-99) Medications Current Medications Albuterol/ Ipratropium (Duoneb) 3 ml 1X ONCE NEB Last administered on 13:59; Start 09/27/17 at 14:00; Stop 09/27/17 at 14:01; Status DC Ondansetron HCl (Zofran) 4 mg STK-MED ONCE .ROUTE ; Start 09/27/17 at 14:31; Stop 09/27/17 at 14:32; Status DC Furosemide (Lasix) 40 mg 1X ONCE IVP Last administered on 09/27/17 14:40; Start 09/27/17 at 14:45; Stop 09/27/17 at 14:46; Status DC Ondansetron HCl (Zofran) 4 mg 1X ONCE IV Last administered on 09/27/17 14:37 ; Start 09/27/17 at 14:45; Stop 09/27/17 at 14:46; Status DC Iohexol (Omnipaque 300 Mg/ml) 75 ml 1X ONCE IV Last administered on 15:17; Start 09/27/17 at 15:15; Stop 09/27/17 at 15:16; Status DC Ondansetron HCl (Zofran) 4 mg PRN Q8HRS PRN IV NAUSEA/VOMITING; Start at 15:45; Stop 09/28/17 at 15:44; Status DC Morphine Sulfate 2 mg PRN Q2HR PRN IV PAIN; Start 09/27/17 at 15:45; Stop at 15:44; Status DC Aspirin (Children'S Aspirin) 324 mg 1X ONCE PO Last administered on 16:03; Start 09/27/17 at 16:00; Stop 09/27/17 at 16:01; Status DC Aspirin (Children'S Aspirin) 81 mg DAILY08 PO Last administered on 09/29/17 09:02; Start 09/28/17 at 08:00 Vitamin D (Vitamin D3) 1,000 unit DAILY PO Last administered on 09/29/17 09: 02; Start 09/28/17 at 09:00 Acetaminophen/ Hydrocodone Bitart (Lortab 5/325) 1 tab PRN Q6HRS PRN PO PAIN Last administered on 09/28/17 22:59; Start 09/27/17 at 18:30 Metformin HCl (Glucophage Xr) 1,000 mg BIDAC PO ; Start 09/28/17 at 07:30; Stop 09/28/17 at 08:25; Status DC Nitrofurantoin Macrocrystals (Macrobid) 100 mg DAILY PO Last administered on 09:02; Start 09/28/17 at 09:00 Simvastatin (Zocor) 40 mg QHS PO Last administered on 09/28/17 22:58; Start 09/27/17 at 21:00 Duloxetine HCl (Cymbalta) 60 mg DAILY PO Last administered on 09/29/17 09:03 ; Start 09/28/17 at 09:00 Lactobacillus Rhamnosus (Culturelle) 1 cap DAILY PO Last administered on 09:01; Start 09/28/17 at 09:00 Losartan Potassium (Cozaar) 100 mg DAILY PO Last administered on 09/29/17 09: 02; Start 09/28/17 at 09:00 Metoprolol Tartrate (Lopressor) 100 mg BID PO Last administered on 09/29/17 09:01; Start 09/27/17 at 21:00 Oxybutynin Chloride (Ditropan) 5 mg [id number] PO Last administered on 09/29/17 09:00; Start 09/27/17 at 21:00 Nifedipine (Procardia Xl) 90 mg DAILY PO Last administered on 09/29/17 09:01 ; Start 09/28/17 at 09:00 Pantoprazole Sodium (Protonix) 40 mg DAILYAC PO Last administered on 09:00; Start 09/28/17 at 07:30 Furosemide (Lasix) 40 mg [id number] IVP Last administered on 09/29/17 09:02; Start 09/28/17 at 09:00 Enoxaparin Sodium (Lovenox Per Pharmacy Prophylaxis Dosing) 1 each PRN DAILY PRN MC SEE COMMENTS; Start 09/27/17 at 18:30 Enoxaparin Sodium (Lovenox 40mg Syringe) 40 mg DAILY SQ Last administered on 09:03; Start 09/28/17 at 09:00 Insulin Aspart (NovoLOG) 0-7 UNITS TIDWMEALS SQ Last administered on 12:09; Start 09/28/17 at 08:00 Dextrose (Dextrose 50%-Water Syringe) 12.5 gm PRN Q15MIN PRN IV SEE COMMENTS; Start 09/27/17 at 18:45 Furosemide (Lasix) 20 mg 1X ONCE IVP ; Start 09/27/17 at 20:30; Stop at 20:37; Status DC Phytonadione (Vitamin K Ampule) 5 mg 1X ONCE SQ ; Start 09/27/17 at 20:30; Stop 09/27/17 at 20:37; Status DC Guaifenesin (Robitussin Dm) 10 ml PRN Q6HRS PRN PO COUGH; Start 09/28/17 at 08 :15 Albuterol Sulfate (Ventolin Neb Soln) 2.5 mg PRN Q4HRS PRN NEB SHORTNESS OF BREATH; Start 09/28/17 at 08:15 Metformin HCl (Glucophage Xr) 1,000 mg BIDAC PO ; Start 09/29/17 at 16:30 Info (Do NOT chart on this entry -- for MONITORING) 1 each PRN DAILY PRN MC SEE COMMENTS; Start 09/28/17 at 08:30; Stop 09/29/17 at 15:15 Clonidine HCl (Catapres) 0.1 mg PRN Q1HR PRN PO HYPERTENSION, SEE COMMENTS; Start 09/28/17 at 21:45 Active Scripts Active Reported [potassium OTC] Hydrocodone-Apap 5-325 (Hydrocodone Bit/Acetaminophen) 1 Each Tablet 1 Tab PO PRN Q6HRS PRN Macrobid 100 Mg Capsule (Nitrofurantoin Monohyd/M-Cryst) 100 Mg Capsule 100 Mg PO DAILY Probiotic (Lactobacillus Combo No.11) 1 Each Cap.sprink 1 Each PO DAILY Simvastatin 40 Mg Tablet 1 Tab PO QHS Cymbalta (Duloxetine Hcl) 60 Mg Capsule.dr 1 Cap PO DAILY Metformin Hcl Er (Metformin Hcl) 500 Mg Tab.er.24h 2 Tab PO BIDAC Metoprolol Tartrate 100 Mg Tablet 1 Tab PO BID Losartan Potassium 100 Mg Tablet 100 Mg PO DAILY Lasix (Furosemide) 20 Mg Tablet 3 Tab PO DAILY Omeprazole 40 Mg Capsule.dr 1 Cap PO DAILY Myrbetriq (Mirabegron) 50 Mg Tab.er.24h 50 Mg PO DAILY Procardia Xl (Nifedipine) 90 Mg Tab.er.24 1 Tab PO DAILY Aspirin 81 Mg Tab.chew 1 Tab PO DAILY Vitamin D3 (Cholecalciferol (Vitamin D3)) 1,000 Unit Tablet 1 Tab PO DAILY Zyrtec (Cetirizine Hcl) 10 Mg Capsule 10 Mg PO Vitals/I & O Vital Sign - Last 24 Hours 09/28/17 09/28/17 09/28/17 09/28/17 10:42 11:44 12:05 14:45 Temp 96.6 96.8 96.6 96.8 Pulse 69 69 71 Resp 28 20 20 B/P (MAP) 156/75 (102) 156/75 141/69 (93) Pulse Ox 91 86 92 O2 Delivery Nasal Cannula Room Air Nasal Cannula O2 Flow Rate 13.0 13.0 09/28/17 09/28/17 09/28/17 09/28/17 19:00 20:14 22:58 22:59 Temp 98.1 98.1 Pulse 74 74 Resp 18 18 B/P (MAP) 133/64 (87) 133/64 Pulse Ox 93 93 O2 Delivery Nasal Cannula Nasal Cannula O2 Flow Rate 13.0 13.0 09/28/17 09/29/17 09/29/17 09/29/17 23:00 00:09 03:00 07:00 Temp 98.0 97.7 97.7 98.0 97.7 97.7 Pulse 68 62 60 Resp 18 18 16 17 B/P (MAP) 126/65 (85) 138/70 (92) 140/63 (88) Pulse Ox 92 93 92 94 O2 Delivery Nasal Cannula Nasal Cannula O2 Flow Rate 13.0 10.0 09/29/17 09/29/17 09/29/17 09:01 09:01 09:02 Pulse 60 60 60 B/P (MAP) 140/63 140/63 140/63 Intake and Output 09/28/17 09/28/17 09/29/17 15:00 23:00 07:00 Intake Total 600 ml 360 ml 120 ml Output Total 750 ml Balance 600 ml 360 ml -630 ml CESILIA HUNTLEY MD Sep 29, 2017 10:16
[2017-09-29] MEDS ORDERED: POTASSIUM CHLORIDE 20 MEQ TABLET.ER. PO ONE (10:30)
[2017-09-29 10:49] VITALS: BP 149/71
[2017-09-29] MEDS: FUROSEMIDE 40 MG TABLET. PO SCH (11:58)
[2017-09-29] MEDS: HYDROcodone/APAP 5/325MG 1 TAB TABLET PO PRN ×2 (13:12→20:55)
[2017-09-29 14:45] VITALS: BP 121/60
--- NOTE | 2017-09-29 16:19 | PDOC ---
PROGRESS NOTES Subjective Subjective Patient seen and examined The patient looks and feels better today. Objective Objective Vital Signs Date Time Temp Pulse Resp B/P (MAP) Pulse Ox O2 Delivery O2 Flow Rate FiO2 09/29/17 14:45 98.4 60 18 121/60 (80) 93 Nasal Cannula 8.0 98.4 Intake and Output 09/29/17 07:00 Intake Total 1080 ml Output Total 750 ml Balance 330 ml Intake Oral 1080 ml Output Urine Total 750 ml # Voids 4 # Bowel Movements 1 Physical Exam Abdomen: Normal bowel sounds Heart: Regular rate General: No acute distress Lungs: Other (slightly decreased breath sounds) Assessment Assessment Problems Medical Problems: (1) SOB (shortness of breath) Status: Acute 1. Acute hypoxic respiratory failure. Improved today. 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 Echocardiogram shows normal left ventricular systolic function with mild mitral regurgitation and mild to moderate tricuspid regurgitation. Agree with present treatment. Followed by the pulmonary service. 2. Possible acute on chronic heart failure. As noted above the patient's ECHO shows intact LV systolic function. Continue present treatment. 3. Minimally elevated troponin. Troponin level 0.101. No acute ischemic EKG changes. Intact 4. Hypertension. Blood pressures under better control. Wi Patient's echo shows intact LV systolic function.LV systolic function. Continue medical treatment. 5. Diabetes mellitus. As per the primary service. Comment Review of Relevant I have reviewed the following items rayna (where applicable) has been applied. Labs Laboratory Tests Test 09/27/17 21:10 09/28/17 03:30 09/28/17 07:54 09/28/17 09:30 Troponin I Quantitative 0.139 ng/mL (0.000-0.055) 0.101 ng/mL (0.000-0.055) White Blood Count 10.6 x10^3/uL (4.0-11.0) Red Blood Count 4.37 x10^6/uL (3.50-5.40) Hemoglobin 12.7 g/dL (12.0-15.5) Hematocrit 38.7 % (36.0-47.0) Mean Corpuscular Volume 89 fL (79-100) Mean Corpuscular Hemoglobin 29 pg (25-35) Mean Corpuscular Hemoglobin Concent 33 g/dL (31-37) Red Cell Distribution Width 14.7 % (11.5-14.5) Platelet Count 310 x10^3/uL (140-400) Neutrophils (%) (Auto) 80 % (31-73) Lymphocytes (%) (Auto) 14 % (24-48) Monocytes (%) (Auto) 6 % (0-9) Eosinophils (%) (Auto) 1 % (0-3) Basophils (%) (Auto) 0 % (0-3) Neutrophils # (Auto) 8.4 x10^3uL (1.8-7.7) Lymphocytes # (Auto) 1.4 x10^3/uL (1.0-4.8) Monocytes # (Auto) 0.6 x10^3/uL (0.0-1.1) Eosinophils # (Auto) 0.1 x10^3/uL (0.0-0.7) Basophils # (Auto) 0.0 x10^3/uL (0.0-0.2) Sodium Level 141 mmol/L (136-145) Potassium Level 4.0 mmol/L (3.5-5.1) Chloride Level 99 mmol/L (98-107) Carbon Dioxide Level 37 mmol/L (21-32) Anion Gap 5 (6-14) Blood Urea Nitrogen 11 mg/dL (7-20) Creatinine 0.7 mg/dL (0.6-1.0) Estimated GFR (Cockcroft-Gault) 84.2 Glucose Level 170 mg/dL (70-99) Hemoglobin A1c 7.1 % (4.8-5.6) Calcium Level 8.5 mg/dL (8.5-10.1) Glucose (Fingerstick) 149 mg/dL (70-99) Clostridium difficile Toxin (PCR) Negative (Negative) Test 09/28/17 11:36 09/28/17 16:20 09/28/17 21:02 09/29/17 03:50 Glucose (Fingerstick) 201 mg/dL (70-99) 133 mg/dL (70-99) 172 mg/dL (70-99) Sodium Level 141 mmol/L (136-145) Potassium Level 3.4 mmol/L (3.5-5.1) Chloride Level 98 mmol/L (98-107) Carbon Dioxide Level 37 mmol/L (21-32) Anion Gap 6 (6-14) Blood Urea Nitrogen 9 mg/dL (7-20) Creatinine 0.7 mg/dL (0.6-1.0) Estimated GFR (Cockcroft-Gault) 84.2 Glucose Level 137 mg/dL (70-99) Calcium Level 9.0 mg/dL (8.5-10.1) Troponin I Quantitative 0.043 ng/mL (0.000-0.055) Triglycerides Level 138 mg/dL (0-150) Cholesterol Level 153 mg/dL (0-200) LDL Cholesterol, Calculated 79 mg/dL (0-100) VLDL Cholesterol, Calculated 28 mg/dL (0-40) Non-HDL Cholesterol Calculated 107 mg/dL (0-129) HDL Cholesterol 46 mg/dL (40-60) Cholesterol/HDL Ratio 3.3 Test 09/29/17 07:25 09/29/17 11:11 Glucose (Fingerstick) 139 mg/dL (70-99) 146 mg/dL (70-99) Laboratory Tests Test 09/28/17 16:20 09/28/17 21:02 09/29/17 03:50 09/29/17 07:25 Glucose (Fingerstick) 133 mg/dL (70-99) 172 mg/dL (70-99) 139 mg/dL (70-99) Sodium Level 141 mmol/L (136-145) Potassium Level 3.4 mmol/L (3.5-5.1) Chloride Level 98 mmol/L (98-107) Carbon Dioxide Level 37 mmol/L (21-32) Anion Gap 6 (6-14) Blood Urea Nitrogen 9 mg/dL (7-20) Creatinine 0.7 mg/dL (0.6-1.0) Estimated GFR (Cockcroft-Gault) 84.2 Glucose Level 137 mg/dL (70-99) Calcium Level 9.0 mg/dL (8.5-10.1) Troponin I Quantitative 0.043 ng/mL (0.000-0.055) Triglycerides Level 138 mg/dL (0-150) Cholesterol Level 153 mg/dL (0-200) LDL Cholesterol, Calculated 79 mg/dL (0-100) VLDL Cholesterol, Calculated 28 mg/dL (0-40) Non-HDL Cholesterol Calculated 107 mg/dL (0-129) HDL Cholesterol 46 mg/dL (40-60) Cholesterol/HDL Ratio 3.3 Test 09/29/17 11:11 Glucose (Fingerstick) 146 mg/dL (70-99) Medications Current Medications Albuterol/ Ipratropium (Duoneb) 3 ml 1X ONCE NEB Last administered on 13:59; Start 09/27/17 at 14:00; Stop 09/27/17 at 14:01; Status DC Ondansetron HCl (Zofran) 4 mg STK-MED ONCE .ROUTE ; Start 09/27/17 at 14:31; Stop 09/27/17 at 14:32; Status DC Furosemide (Lasix) 40 mg 1X ONCE IVP Last administered on 09/27/17 14:40; Start 09/27/17 at 14:45; Stop 09/27/17 at 14:46; Status DC Ondansetron HCl (Zofran) 4 mg 1X ONCE IV Last administered on 09/27/17 14:37 ; Start 09/27/17 at 14:45; Stop 09/27/17 at 14:46; Status DC Iohexol (Omnipaque 300 Mg/ml) 75 ml 1X ONCE IV Last administered on 15:17; Start 09/27/17 at 15:15; Stop 09/27/17 at 15:16; Status DC Ondansetron HCl (Zofran) 4 mg PRN Q8HRS PRN IV NAUSEA/VOMITING; Start at 15:45; Stop 09/28/17 at 15:44; Status DC Morphine Sulfate 2 mg PRN Q2HR PRN IV PAIN; Start 09/27/17 at 15:45; Stop at 15:44; Status DC Aspirin (Children'S Aspirin) 324 mg 1X ONCE PO Last administered on 16:03; Start 09/27/17 at 16:00; Stop 09/27/17 at 16:01; Status DC Aspirin (Children'S Aspirin) 81 mg DAILY08 PO Last administered on 09/29/17 09:02; Start 09/28/17 at 08:00 Vitamin D (Vitamin D3) 1,000 unit DAILY PO Last administered on 09/29/17 09: 02; Start 09/28/17 at 09:00 Acetaminophen/ Hydrocodone Bitart (Lortab 5/325) 1 tab PRN Q6HRS PRN PO PAIN Last administered on 09/29/17 13:12; Start 09/27/17 at 18:30 Metformin HCl (Glucophage Xr) 1,000 mg BIDAC PO ; Start 09/28/17 at 07:30; Stop 09/28/17 at 08:25; Status DC Nitrofurantoin Macrocrystals (Macrobid) 100 mg DAILY PO Last administered on 09:02; Start 09/28/17 at 09:00 Simvastatin (Zocor) 40 mg QHS PO Last administered on 09/28/17 22:58; Start 09/27/17 at 21:00 Duloxetine HCl (Cymbalta) 60 mg DAILY PO Last administered on 09/29/17 09:03 ; Start 09/28/17 at 09:00 Lactobacillus Rhamnosus (Culturelle) 1 cap DAILY PO Last administered on 09:01; Start 09/28/17 at 09:00 Losartan Potassium (Cozaar) 100 mg DAILY PO Last administered on 09/29/17 09: 02; Start 09/28/17 at 09:00 Metoprolol Tartrate (Lopressor) 100 mg BID PO Last administered on 09/29/17 09:01; Start 09/27/17 at 21:00 Oxybutynin Chloride (Ditropan) 5 mg [id number] PO Last administered on 09/29/17 14:41; Start 09/27/17 at 21:00 Nifedipine (Procardia Xl) 90 mg DAILY PO Last administered on 09/29/17 09:01 ; Start 09/28/17 at 09:00 Pantoprazole Sodium (Protonix) 40 mg DAILYAC PO Last administered on 09:00; Start 09/28/17 at 07:30 Furosemide (Lasix) 40 mg [id number] IVP Last administered on 09/29/17 09:02; Start 09/28/17 at 09:00; Stop 09/29/17 at 10:04; Status DC Enoxaparin Sodium (Lovenox Per Pharmacy Prophylaxis Dosing) 1 each PRN DAILY PRN MC SEE COMMENTS; Start 09/27/17 at 18:30 Enoxaparin Sodium (Lovenox 40mg Syringe) 40 mg DAILY SQ Last administered on 09:03; Start 09/28/17 at 09:00 Insulin Aspart (NovoLOG) 0-7 UNITS TIDWMEALS SQ Last administered on 12:09; Start 09/28/17 at 08:00 Dextrose (Dextrose 50%-Water Syringe) 12.5 gm PRN Q15MIN PRN IV SEE COMMENTS; Start 09/27/17 at 18:45 Furosemide (Lasix) 20 mg 1X ONCE IVP ; Start 09/27/17 at 20:30; Stop at 20:37; Status DC Phytonadione (Vitamin K Ampule) 5 mg 1X ONCE SQ ; Start 09/27/17 at 20:30; Stop 09/27/17 at 20:37; Status DC Guaifenesin (Robitussin Dm) 10 ml PRN Q6HRS PRN PO COUGH; Start 09/28/17 at 08 :15 Albuterol Sulfate (Ventolin Neb Soln) 2.5 mg PRN Q4HRS PRN NEB SHORTNESS OF BREATH; Start 09/28/17 at 08:15 Metformin HCl (Glucophage Xr) 1,000 mg BIDAC PO ; Start 09/29/17 at 16:30 Info (Do NOT chart on this entry -- for MONITORING) 1 each PRN DAILY PRN MC SEE COMMENTS; Start 09/28/17 at 08:30; Stop 09/29/17 at 15:15; Status DC Clonidine HCl (Catapres) 0.1 mg PRN Q1HR PRN PO HYPERTENSION, SEE COMMENTS; Start 09/28/17 at 21:45 Furosemide (Lasix) 40 mg BIDACBL PO Last administered on 09/29/17 11:58; Start 09/29/17 at 11:30 Potassium Chloride (Klor-Con) 40 meq 1X ONCE PO Last administered on 11:58; Start 09/29/17 at 10:30; Stop 09/29/17 at 10:31; Status DC Active Scripts Active Reported [potassium OTC] Hydrocodone-Apap 5-325 (Hydrocodone Bit/Acetaminophen) 1 Each Tablet 1 Tab PO PRN Q6HRS PRN Macrobid 100 Mg Capsule (Nitrofurantoin Monohyd/M-Cryst) 100 Mg Capsule 100 Mg PO DAILY Probiotic (Lactobacillus Combo No.11) 1 Each Cap.sprink 1 Each PO DAILY Simvastatin 40 Mg Tablet 1 Tab PO QHS Cymbalta (Duloxetine Hcl) 60 Mg Capsule.dr 1 Cap PO DAILY Metformin Hcl Er (Metformin Hcl) 500 Mg Tab.er.24h 2 Tab PO BIDAC Metoprolol Tartrate 100 Mg Tablet 1 Tab PO BID Losartan Potassium 100 Mg Tablet 100 Mg PO DAILY Lasix (Furosemide) 20 Mg Tablet 3 Tab PO DAILY Omeprazole 40 Mg Capsule.dr 1 Cap PO DAILY Myrbetriq (Mirabegron) 50 Mg Tab.er.24h 50 Mg PO DAILY Procardia Xl (Nifedipine) 90 Mg Tab.er.24 1 Tab PO DAILY Aspirin 81 Mg Tab.chew 1 Tab PO DAILY Vitamin D3 (Cholecalciferol (Vitamin D3)) 1,000 Unit Tablet 1 Tab PO DAILY Zyrtec (Cetirizine Hcl) 10 Mg Capsule 10 Mg PO Vitals/I & O Vital Sign - Last 24 Hours 09/28/17 09/28/17 09/28/17 09/28/17 19:00 20:14 22:58 22:59 Temp 98.1 98.1 Pulse 74 74 Resp 18 18 B/P (MAP) 133/64 (87) 133/64 Pulse Ox 93 93 O2 Delivery Nasal Cannula Nasal Cannula O2 Flow Rate 13.0 13.0 09/28/17 09/29/17 09/29/17 09/29/17 23:00 00:09 03:00 07:00 Temp 98.0 97.7 97.7 98.0 97.7 97.7 Pulse 68 62 60 Resp 18 17 B/P (MAP) 126/65 (85) 138/70 (92) 140/63 (88) Pulse Ox 92 92 94 O2 Delivery Nasal Cannula O2 Flow Rate 10.0 09/29/17 09/29/17 09/29/17 09/29/17 08:05 09:01 09:01 09:02 Pulse 60 60 60 B/P (MAP) 140/63 140/63 140/63 O2 Delivery Nasal Cannula O2 Flow Rate 10.0 09/29/17 09/29/17 09/29/17 09/29/17 10:49 13:12 14:36 14:45 Temp 98.2 98.4 98.2 98.4 Pulse 71 60 Resp 18 18 B/P (MAP) 149/71 (97) 121/60 (80) Pulse Ox 95 95 93 O2 Delivery Nasal Cannula Nasal Cannula Nasal Cannula Nasal Cannula O2 Flow Rate 8.0 8.0 8.0 8.0 Intake and Output 09/28/17 09/28/17 09/29/17 15:00 23:00 07:00 Intake Total 600 ml 360 ml 120 ml Output Total 750 ml Balance 600 ml 360 ml -630 ml ELZA HYATT MD Sep 29, 2017 16:19
[2017-09-29] MEDS: metFORMIN XR 500 MG TAB.ER.24H PO SCH (17:29)
[2017-09-29 19:00] VITALS: BP 132/59
[2017-09-29] MEDS: SIMVASTATIN 40 MG TABLET. PO SCH (20:54)
[2017-09-29 22:58] VITALS: BP 133/71
[2017-09-30 03:06] VITALS: BP 135/69
[2017-09-30 07:00] VITALS: BP 129/71
[2017-09-30] MEDS: INSULIN ASPART 300 UNITS/3 ML INSULN.PEN SQ SCH ×2 (07:54→12:00)
[2017-09-30] MEDS: ASPIRIN CHEWABLE 81 MG TABLET. PO SCH (10:03)
[2017-09-30] MEDS: OXYBUTYNIN CHLORIDE 5 MG TABLET PO SCH ×2 (10:03→15:26)
[2017-09-30] MEDS: PANTOPRAZOLE 40 MG TABLET.DR. PO SCH (10:03)
[2017-09-30] MEDS: metFORMIN XR 500 MG TAB.ER.24H PO SCH (10:04)
[2017-09-30] MEDS: NITROFURANTOIN MONOHYD/M-CRYST 100 MG CAPSULE. PO SCH (10:04)
[2017-09-30] MEDS: CHOLECALCIFEROL (VITAMIN D3) 1,000 UNIT TABLET PO SCH (10:04)
[2017-09-30] MEDS: METOPROLOL TART IMMED RELEASE 50 MG TABLET. PO SCH (10:04)
[2017-09-30] MEDS: DULoxetine HCL 30 MG CAPSULE.DR PO SCH (10:05)
[2017-09-30] MEDS: FUROSEMIDE 40 MG TABLET. PO SCH ×2 (10:05→12:53)
[2017-09-30] MEDS: LACTOBACILLUS RHAMNOSUS GG 1 CAPSULE. PO SCH (10:05)
[2017-09-30] MEDS: LOSARTAN POTASSIUM 50 MG TABLET. PO SCH (10:05)
[2017-09-30 11:00] VITALS: BP 118/53
--- NOTE | 2017-09-30 11:09 | PDOC ---
PROGRESS NOTES Chief Complaint Chief Complaint acute on chronic hypoxic respiratory failure, on 3 liters at baseline at home Interstitial lung disease CHF acute on chronic diastolic failure clinically, this is not supported by Echo results Obesity, BMI 38 HTN Dm2 CAD History of Present Illness History of Present Illness Patient seen and examined. No acute events overnight. Patient states she is breathing better, now on 5L of oxygen. Patient is on 3L at baseline. Denies chest pain, fevers/chills, nausea/vomiting. Vitals Vitals Vital Signs Date Time Temp Pulse Resp B/P (MAP) Pulse Ox O2 Delivery O2 Flow Rate FiO2 09/30/17 10:05 65 129/71 09/30/17 07:00 97.7 18 95 Nasal Cannula 6.0 97.7 Physical Exam General: Alert, Oriented X3, Cooperative, No acute distress Heart: Regular rate Lungs: Clear, Other (good vol) Abdomen: Normal bowel sounds Extremities: No clubbing, Normal pulses, Other (2+ LE edema pedal ) Skin: No rashes, No breakdown Labs LABS Laboratory Tests Test 09/29/17 11:11 09/29/17 16:29 09/29/17 20:27 09/30/17 07:16 Glucose (Fingerstick) 146 mg/dL (70-99) 139 mg/dL (70-99) 133 mg/dL (70-99) 161 mg/dL (70-99) Review of Systems Review of Systems Patient states shortness of breath improving. Denies fever/chills, nausea/ vomiting. Assessment and Plan Assessmemt and Plan Problems Medical Problems: (1) SOB (shortness of breath) Status: Acute acute on chronic hypoxic respiratory failure, on 3 liters at baseline at home Interstitial lung disease CHF acute on chronic diastolic failure clinically, this is not supported by Echo results Obesity, BMI 38 HTN Dm2 CAD Plan: Albuterol 5L O2, taper to baseline as tolerated Lasix Continue home medications PRN Narcotics PT/OT Possible discharge today if okay with subspecialties Problems: Comment Review of Relevant I have reviewed the following items rayna (where applicable) has been applied. Labs Laboratory Tests Test 09/28/17 11:36 09/28/17 16:20 09/28/17 21:02 09/29/17 03:50 Glucose (Fingerstick) 201 mg/dL (70-99) 133 mg/dL (70-99) 172 mg/dL (70-99) Sodium Level 141 mmol/L (136-145) Potassium Level 3.4 mmol/L (3.5-5.1) Chloride Level 98 mmol/L (98-107) Carbon Dioxide Level 37 mmol/L (21-32) Anion Gap 6 (6-14) Blood Urea Nitrogen 9 mg/dL (7-20) Creatinine 0.7 mg/dL (0.6-1.0) Estimated GFR (Cockcroft-Gault) 84.2 Glucose Level 137 mg/dL (70-99) Calcium Level 9.0 mg/dL (8.5-10.1) Troponin I Quantitative 0.043 ng/mL (0.000-0.055) Triglycerides Level 138 mg/dL (0-150) Cholesterol Level 153 mg/dL (0-200) LDL Cholesterol, Calculated 79 mg/dL (0-100) VLDL Cholesterol, Calculated 28 mg/dL (0-40) Non-HDL Cholesterol Calculated 107 mg/dL (0-129) HDL Cholesterol 46 mg/dL (40-60) Cholesterol/HDL Ratio 3.3 Test 09/29/17 07:25 09/29/17 11:11 09/29/17 16:29 09/29/17 20:27 Glucose (Fingerstick) 139 mg/dL (70-99) 146 mg/dL (70-99) 139 mg/dL (70-99) 133 mg/dL (70-99) Test 09/30/17 07:16 Glucose (Fingerstick) 161 mg/dL (70-99) Laboratory Tests Test 09/29/17 11:11 09/29/17 16:29 09/29/17 20:27 09/30/17 07:16 Glucose (Fingerstick) 146 mg/dL (70-99) 139 mg/dL (70-99) 133 mg/dL (70-99) 161 mg/dL (70-99) Medications Current Medications Albuterol/ Ipratropium (Duoneb) 3 ml 1X ONCE NEB Last administered on t 13:59; Start 09/27/17 at 14:00; Stop 09/27/17 at 14:01; Status DC Ondansetron HCl (Zofran) 4 mg STK-MED ONCE .ROUTE ; Start 09/27/17 at 14:31; Stop 09/27/17 at 14:32; Status DC Furosemide (Lasix) 40 mg 1X ONCE IVP Last administered on 09/27/17 14:40; Start 09/27/17 at 14:45; Stop 09/27/17 at 14:46; Status DC Ondansetron HCl (Zofran) 4 mg 1X ONCE IV Last administered on 09/27/17 14:37 ; Start 09/27/17 at 14:45; Stop 09/27/17 at 14:46; Status DC Iohexol (Omnipaque 300 Mg/ml) 75 ml 1X ONCE IV Last administered on 15:17; Start 09/27/17 at 15:15; Stop 09/27/17 at 15:16; Status DC Ondansetron HCl (Zofran) 4 mg PRN Q8HRS PRN IV NAUSEA/VOMITING; Start at 15:45; Stop 09/28/17 at 15:44; Status DC Morphine Sulfate 2 mg PRN Q2HR PRN IV PAIN; Start 09/27/17 at 15:45; Stop at 15:44; Status DC Aspirin (Children'S Aspirin) 324 mg 1X ONCE PO Last administered on 16:03; Start 09/27/17 at 16:00; Stop 09/27/17 at 16:01; Status DC Aspirin (Children'S Aspirin) 81 mg DAILY08 PO Last administered on 09/30/17 10:03; Start 09/28/17 at 08:00 Vitamin D (Vitamin D3) 1,000 unit DAILY PO Last administered on 09/30/17 10: 04; Start 09/28/17 at 09:00 Acetaminophen/ Hydrocodone Bitart (Lortab 5/325) 1 tab PRN Q6HRS PRN PO PAIN Last administered on 09/29/17 20:55; Start 09/27/17 at 18:30 Metformin HCl (Glucophage Xr) 1,000 mg BIDAC PO ; Start 09/28/17 at 07:30; Stop 09/28/17 at 08:25; Status DC Nitrofurantoin Macrocrystals (Macrobid) 100 mg DAILY PO Last administered on 10:04; Start 09/28/17 at 09:00 Simvastatin (Zocor) 40 mg QHS PO Last administered on 09/29/17 20:54; Start 09/27/17 at 21:00 Duloxetine HCl (Cymbalta) 60 mg DAILY PO Last administered on 09/30/17 10:05 ; Start 09/28/17 at 09:00 Lactobacillus Rhamnosus (Culturelle) 1 cap DAILY PO Last administered on 10:05; Start 09/28/17 at 09:00 Losartan Potassium (Cozaar) 100 mg DAILY PO Last administered on 09/30/17 10: 05; Start 09/28/17 at 09:00 Metoprolol Tartrate (Lopressor) 100 mg BID PO Last administered on 09/30/17 10:04; Start 09/27/17 at 21:00 Oxybutynin Chloride (Ditropan) 5 mg [id number] PO Last administered on 09/30/17 10:03; Start 09/27/17 at 21:00 Nifedipine (Procardia Xl) 90 mg DAILY PO Last administered on 09/30/17 10:05 ; Start 09/28/17 at 09:00 Pantoprazole Sodium (Protonix) 40 mg DAILYAC PO Last administered on 10:03; Start 09/28/17 at 07:30 Furosemide (Lasix) 40 mg [id number] IVP Last administered on 09/29/17 09:02; Start 09/28/17 at 09:00; Stop 09/29/17 at 10:04; Status DC Enoxaparin Sodium (Lovenox Per Pharmacy Prophylaxis Dosing) 1 each PRN DAILY PRN MC SEE COMMENTS; Start 09/27/17 at 18:30 Enoxaparin Sodium (Lovenox 40mg Syringe) 40 mg DAILY SQ Last administered on 09:03; Start 09/28/17 at 09:00 Insulin Aspart (NovoLOG) 0-7 UNITS TIDWMEALS SQ Last administered on 07:54; Start 09/28/17 at 08:00 Dextrose (Dextrose 50%-Water Syringe) 12.5 gm PRN Q15MIN PRN IV SEE COMMENTS; Start 09/27/17 at 18:45 Furosemide (Lasix) 20 mg 1X ONCE IVP ; Start 09/27/17 at 20:30; Stop at 20:37; Status DC Phytonadione (Vitamin K Ampule) 5 mg 1X ONCE SQ ; Start 09/27/17 at 20:30; Stop 09/27/17 at 20:37; Status DC Guaifenesin (Robitussin Dm) 10 ml PRN Q6HRS PRN PO COUGH; Start 09/28/17 at 08 :15 Albuterol Sulfate (Ventolin Neb Soln) 2.5 mg PRN Q4HRS PRN NEB SHORTNESS OF BREATH; Start 09/28/17 at 08:15 Metformin HCl (Glucophage Xr) 1,000 mg BIDAC PO Last administered on t 10:04; Start 09/29/17 at 16:30 Info (Do NOT chart on this entry -- for MONITORING) 1 each PRN DAILY PRN MC SEE COMMENTS; Start 09/28/17 at 08:30; Stop 09/29/17 at 15:15; Status DC Clonidine HCl (Catapres) 0.1 mg PRN Q1HR PRN PO HYPERTENSION, SEE COMMENTS; Start 09/28/17 at 21:45 Furosemide (Lasix) 40 mg BIDACBL PO Last administered on 09/30/17 10:05; Start 09/29/17 at 11:30 Potassium Chloride (Klor-Con) 40 meq 1X ONCE PO Last administered on 11:58; Start 09/29/17 at 10:30; Stop 09/29/17 at 10:31; Status DC Active Scripts Active Reported [potassium OTC] Hydrocodone-Apap 5-325 (Hydrocodone Bit/Acetaminophen) 1 Each Tablet 1 Tab PO PRN Q6HRS PRN Macrobid 100 Mg Capsule (Nitrofurantoin Monohyd/M-Cryst) 100 Mg Capsule 100 Mg PO DAILY Probiotic (Lactobacillus Combo No.11) 1 Each Cap.sprink 1 Each PO DAILY Simvastatin 40 Mg Tablet 1 Tab PO QHS Cymbalta (Duloxetine Hcl) 60 Mg Capsule.dr 1 Cap PO DAILY Metformin Hcl Er (Metformin Hcl) 500 Mg Tab.er.24h 2 Tab PO BIDAC Metoprolol Tartrate 100 Mg Tablet 1 Tab PO BID Losartan Potassium 100 Mg Tablet 100 Mg PO DAILY Lasix (Furosemide) 20 Mg Tablet 3 Tab PO DAILY Omeprazole 40 Mg Capsule. 1 Cap PO DAILY Myrbetriq (Mirabegron) 50 Mg Tab.er.24h 50 Mg PO DAILY Procardia Xl (Nifedipine) 90 Mg Tab.er.24 1 Tab PO DAILY Aspirin 81 Mg Tab.chew 1 Tab PO DAILY Vitamin D3 (Cholecalciferol (Vitamin D3)) 1,000 Unit Tablet 1 Tab PO DAILY Zyrtec (Cetirizine Hcl) 10 Mg Capsule 10 Mg PO Vitals/I & O Vital Sign - Last 24 Hours 09/29/17 09/29/17 09/29/17 09/29/17 13:12 14:45 19:00 20:06 Temp 98.4 97.5 98.4 97.5 Pulse 60 68 Resp 18 19 B/P (MAP) 121/60 (80) 132/59 (83) Pulse Ox 93 94 O2 Delivery Nasal Cannula Nasal Cannula Nasal Cannula Nasal Cannula O2 Flow Rate 8.0 8.0 6.0 6.0 09/29/17 09/29/17 09/29/17 09/29/17 20:54 20:55 22:00 22:58 Temp 98.9 98.9 Pulse 68 67 Resp 18 19 B/P (MAP) 132/59 133/71 (91) Pulse Ox 94 93 93 O2 Delivery Nasal Cannula Nasal Cannula Nasal Cannula O2 Flow Rate 6.0 6.0 6.0 09/30/17 09/30/17 09/30/17 09/30/17 03:06 07:00 10:04 10:05 Temp 97.7 97.7 97.7 97.7 Pulse 57 65 65 65 Resp 18 18 B/P (MAP) 135/69 (91) 129/71 (90) 129/71 129/71 Pulse Ox 92 95 O2 Delivery Nasal Cannula Nasal Cannula O2 Flow Rate 6.0 6.0 09/30/17 10:05 Pulse 65 B/P (MAP) 129/71 Intake and Output 09/29/17 09/29/17 09/30/17 15:00 23:00 07:00 Intake Total 360 ml 120 ml Output Total 200 ml Balance 360 ml -80 ml CASTLE,NIAL K III DO Sep 30, 2017 11:09
--- NOTE | 2017-09-30 12:24 | PDOC ---
CARDIO Progress Notes Date and Time Date of Service 09/30/17 Time of Evaluation 1140 Subjective Subjective: No Chest Pain, No shortness of breath, No Palpitations Vitals Vitals Vital Signs Date Time Temp Pulse Resp B/P (MAP) Pulse Ox O2 Delivery O2 Flow Rate FiO2 09/30/17 11:00 65 18 118/53 (74) 96 Nasal Cannula 6.0 09/30/17 07:00 97.7 97.7 Weight Weight [ ] Input and Output Intake and Output Intake and Output 09/30/17 06:59 Intake Total 480 ml Output Total 200 ml Balance 280 ml Intake Oral 480 ml Output Urine Total 200 ml # Voids 3 Laboratory Labs Laboratory Tests Test 09/29/17 16:29 09/29/17 20:27 09/30/17 07:16 09/30/17 11:25 Glucose (Fingerstick) 139 mg/dL (70-99) 133 mg/dL (70-99) 161 mg/dL (70-99) 150 mg/dL (70-99) Physical Exam HEENT: Neck Supple W Full Motion Chest: Symmetric LUNGS: Clear to Auscultation, Other (diminished bases) Heart: S1S2, RRR, murmurs (2/6 systolic murmur ) Abdomen: Soft N/T Extremities: Other (trace bilateral LE edema ) Neurology: alert, oriented, follow commands Assessment Assessment 1. Acute hypoxic respiratory failure secondary to a/c HF. Improved 2. Acute on chronic heart failure; LVEF preserved. improved with diuresis 3. Mild troponin elevation; peak 0.139. Most probably type II, demand ischemia. No acute ischemic EKG changes. Echo without WMA 4. Hypertension; well-controlled 5. Diabetes mellitus; as per PCP Recommendations Continue routine oral diuresis 2Gm Na dietary restriction. Daily weight monitoring Supportive care May discharge from a CV standpoint and f/u with routine hostage negotiator in 2-3 weeks. STEPHANIE DURANT APRN Sep 30, 2017 12:24
[2017-09-30] MEDS: ENOXAPARIN 40 MG/0.4 ML SYRINGE. SQ SCH (12:53)
--- NOTE | 2017-09-30 14:21 | PDOC ---
PULMONARY PROGRESS NOTES Subjective pt feels better Vitals Vital Signs Date Time Temp Pulse Resp B/P (MAP) Pulse Ox O2 Delivery O2 Flow Rate FiO2 09/30/17 11:00 65 18 118/53 (74) 96 Nasal Cannula 6.0 09/30/17 07:00 97.7 97.7 ROS: No Nausea, No Chest Pain, No Abdominal Pain, No Increase Cough General: Alert, Oriented X4, No acute distress Lungs: Clear, Other (good vol) Cardiovascular: S1 Abdomen: Soft Neuro Exam: Alert Extremities: Other (trace edema) Skin: Warm Labs Laboratory Tests Test 09/28/17 16:20 09/28/17 21:02 09/29/17 03:50 09/29/17 07:25 Glucose (Fingerstick) 133 mg/dL (70-99) 172 mg/dL (70-99) 139 mg/dL (70-99) Sodium Level 141 mmol/L (136-145) Potassium Level 3.4 mmol/L (3.5-5.1) Chloride Level 98 mmol/L (98-107) Carbon Dioxide Level 37 mmol/L (21-32) Anion Gap 6 (6-14) Blood Urea Nitrogen 9 mg/dL (7-20) Creatinine 0.7 mg/dL (0.6-1.0) Estimated GFR (Cockcroft-Gault) 84.2 Glucose Level 137 mg/dL (70-99) Calcium Level 9.0 mg/dL (8.5-10.1) Troponin I Quantitative 0.043 ng/mL (0.000-0.055) Triglycerides Level 138 mg/dL (0-150) Cholesterol Level 153 mg/dL (0-200) LDL Cholesterol, Calculated 79 mg/dL (0-100) VLDL Cholesterol, Calculated 28 mg/dL (0-40) Non-HDL Cholesterol Calculated 107 mg/dL (0-129) HDL Cholesterol 46 mg/dL (40-60) Cholesterol/HDL Ratio 3.3 Test 09/29/17 11:11 09/29/17 16:29 09/29/17 20:27 09/30/17 07:16 Glucose (Fingerstick) 146 mg/dL (70-99) 139 mg/dL (70-99) 133 mg/dL (70-99) 161 mg/dL (70-99) Test 09/30/17 11:25 Glucose (Fingerstick) 150 mg/dL (70-99) Laboratory Tests Test 09/29/17 16:29 09/29/17 20:27 09/30/17 07:16 09/30/17 11:25 Glucose (Fingerstick) 139 mg/dL (70-99) 133 mg/dL (70-99) 161 mg/dL (70-99) 150 mg/dL (70-99) Medications Active Scripts Medications Dose Route/Sig Max Daily Dose Days Date Category [potassium OTC] 09/27/17 Reported Hydrocodone-Apap 5-325 (Hydrocodone Bit/Acetaminophen) 1 Each Tablet 1 Tab PO PRN Q6HRS PRN 09/27/17 Reported Macrobid 100 Mg Capsule (Nitrofurantoin Monohyd/M-Cryst) 100 Mg Capsule 100 Mg PO DAILY 09/27/17 Reported Probiotic (Lactobacillus Combo No.11) 1 Each Cap.sprink 1 Each PO DAILY 09/27/17 Reported Simvastatin 40 Mg Tablet 1 Tab PO QHS 09/27/17 Reported Cymbalta (Duloxetine Hcl) 60 Mg Capsule.dr 1 Cap PO DAILY 09/27/17 Reported Metformin Hcl Er (Metformin Hcl) 500 Mg Tab.er.24h 2 Tab PO BIDAC 09/27/17 Reported Metoprolol Tartrate 100 Mg Tablet 1 Tab PO BID 09/27/17 Reported Losartan Potassium 100 Mg Tablet 100 Mg PO DAILY 09/27/17 Reported Lasix (Furosemide) 20 Mg Tablet 3 Tab PO DAILY 09/27/17 Reported Omeprazole 40 Mg Capsule.dr 1 Cap PO DAILY 09/27/17 Reported Myrbetriq (Mirabegron) 50 Mg Tab.er.24h 50 Mg PO DAILY 09/27/17 Reported Procardia Xl (Nifedipine) 90 Mg Tab.er.24 1 Tab PO DAILY 09/27/17 Reported Aspirin 81 Mg Tab.chew 1 Tab PO DAILY 09/27/17 Reported Vitamin D3 (Cholecalciferol (Vitamin D3)) 1,000 Unit Tablet 1 Tab PO DAILY 09/27/17 Reported Zyrtec (Cetirizine Hcl) 10 Mg Capsule 10 Mg PO 09/27/17 Reported Impression . 1. Acute hypoxic respiratory failure 2. acute CHF 3 ILD/FIBROSIS 4. No significant history of tobacco use.\ 5. ATYPICAL PNEUMONIA Plan . D/C HOME ON DOXY FOLLOW UP WITH HOME PULMONOLOGIS 02 AT BASELINE JAMSHID RAUSCH MD Sep 30, 2017 14:21
[2017-09-30] MEDS ORDERED: DOXY100T PO (14:58)
[2017-09-30] MEDS ORDERED: DOXY100C2 PO (14:59)
[2017-09-30 15:03] VITALS: BP 120/62
--- NOTE | 2017-10-09 17:10 | DS ---
DATE OF DISCHARGE: 09/30/2017 DISCHARGE DIAGNOSES: Acute on chronic systolic and diastolic heart failure. DISCHARGE DIAGNOSIS: Resolving heart failure. HOSPITAL COURSE: The patient is a pleasant 62-year-old female who presented with acute on chronic systolic and diastolic heart failure. She was admitted. We checked serial enzymes, serial EKGs. We did cardiac monitoring, physical therapy and occupational therapy. We diuresed her. We consulted cardiology. Overall, she did well. We discharged her to home. DISPOSITION: Home. ACTIVITY: As tolerated. DIET: Low sodium. MEDICATIONS: Please see the MRAD. TOTAL TIME: 39 minutes. NIAL Antonio SANCHEZ DO DR: RICHARD/brianna JOB#: [id number] / [id number]
== END 2017-09-30 15:10 | disposition home or self-care (01) | DRG 291 ==
LOC: ER 13:40 → 1 WEST ICU 15:35 → 5 SOUTH 09-28 10:57
PROVIDERS: ADMIT Internal Medicine; ATTEND Internal Medicine
DX: I11.0 Hypertensive heart disease with heart failure (principal); J96.21 Acute and chronic respiratory failure with hypoxia; J18.9 Pneumonia, unspecified organism; I08.1 Rheumatic disorders of both mitral and tricuspid valves; J44.0 Chronic obstructive pulmonary disease with (acute) lower respiratory infection; R17 Unspecified jaundice; I24.8 Other forms of acute ischemic heart disease; I50.33 Acute on chronic diastolic (congestive) heart failure; F32.9 Major depressive disorder, single episode, unspecified; E11.9 Type 2 diabetes mellitus without complications; E66.9 Obesity, unspecified; I25.10 Atherosclerotic heart disease of native coronary artery without angina pectoris; Z68.38 Body mass index [BMI] 38.0-38.9, adult; Z90.49 Acquired absence of other specified parts of digestive tract; Z82.49 Family history of ischemic heart disease and other diseases of the circulatory system; Z98.51 Tubal ligation status
CPT/HCPCS: 36415; 71010; 71275; 80048; 80061; 80076; 82962; 83036; 83690; 83880; 84484; 85025; 87324; 87641; 93005; 93306; 96374; 96375; J1650; J1815; J1940; J2405; J7620; Q9967; 97116; 99285-25

== ENCOUNTER 2018-07-12 15:43 | Emergency (ER) | payer MEDICARE, OTHER, MEDICAID ==
[~2018-07-12] VITALS: Ht 162.6 cm; Wt 95.3 kg
[~2018-07-12 15:43] MED LIST: ASPI-630 PO; CETI10CA PO; CHOL10003 PO; DOXY100C2 PO; DOXY100T PO; DULO60CA6 PO; FURO-69 PO; HYDR-2758 PO; LACT1CAP8 PO; LOSA100T7 PO; METF500T9 PO; METO100T7 PO; MIRA50TA PO; NIFE90TA PO; NITR100C62 PO; OMEP40CA5 PO; SIMV40TA3 PO; potassium OTC
[2018-07-12] MEDS ORDERED: DIPHTH,PERTUSS(ACELL),TET TOX 0.5 ML DISP.SYRIN. VAX IM ONE (16:00)
[2018-07-12] MEDS ORDERED: ONDANSETRON ODT 4 MG TAB.RAPDIS. PO ONE (16:00)
--- NOTE | 2018-07-12 16:04 | PHYS DOC ---
Past Medical History Past Medical History: CAD, Diabetes-Type II, Hypertension, Other Additional Past Medical Histor: Brown Lung Past Surgical History: Appendectomy, Cholecystectomy, Tonsillectomy, Tubal ligation Alcohol Use: None Drug Use: None Adult General HPI HPI Patient is a 62 year old female with history of hypertension, diabetes type 2, who presents today status post falling. Patient states she was standing on a 18 inch porch when she saw a bee almost get to her grandson, she states in the process of trying to run towards the grandson he fell back hitting her head on the ground. Patient denies any loss of consciousness. Patient is complaining of mild left occipital pain, and posterior neck pain. Patient states the pain is sharp. She states she has not taken anything for her pain. Patient denies being on any blood thinners. Review of Systems Review of Systems Constitutional: Denies fever or chills [] Eyes: Denies change in visual acuity, redness, or eye pain [] HENT: Denies nasal congestion or sore throat [] Respiratory: Denies cough or shortness of breath [] Cardiovascular: No additional information not addressed in HPI [] GI: Denies abdominal pain, nausea, vomiting, bloody stools or diarrhea [] : Denies dysuria or hematuria [] Musculoskeletal: Reports posterior neck pain Integument: Denies rash or skin lesions [] Neurologic: Reports head pain, denies focal weakness or sensory changes [] All other systems were reviewed and found to be within normal limits, except as documented in this note. Current Medications Current Medications Current Medications Medications (Trade) Dose Ordered Sig/Rosio Start Time Stop Time Status Last Admin Dose Admin Diphtheria/ Tetanus/Acell Pertussis (Boostrix) 0.5 ml ONCE ONCE 07/12/18 16:00 07/12/18 16:01 DC 07/12/18 16:22 0.5 ML Ondansetron HCl (Zofran Odt) 4 mg 1X ONCE 07/12/18 16:00 07/12/18 16:01 DC 07/12/18 16:21 4 MG Allergies Allergies Allergies Coded Allergies Type Severity Reaction Last Updated Verified No Known Drug Allergies 09/27/17 No Physical Exam Physical Exam Constitutional: Well developed, well nourished, no acute distress, non-toxic appearance. [] HENT: Normocephalic, atraumatic, bilateral external ears normal, oropharynx moist, no oral exudates, nose normal. [] Eyes: PERRLA, EOMI, conjunctiva normal, no discharge. [] Neck: Normal range of motion, no tenderness, supple, no stridor. [] Cardiovascular:Heart rate regular rhythm, no murmur [] Lungs & Thorax: Bilateral breath sounds clear to auscultation [] Abdomen: Bowel sounds normal, soft, no tenderness, no masses, no pulsatile masses. [] Skin: Warm, dry, posterior occipital with a mild contusion. There is an abrasion on the left elbow with no pain or tenderness to the area. Back: No tenderness, no CVA tenderness. [] Extremities: No tenderness, no cyanosis, no clubbing, ROM intact, no edema. [] Neurologic: Alert and oriented X 3, normal motor function, normal sensory function, no focal deficits noted. Cranial nerves II through XII intact. Psychologic: Affect normal, judgement normal, mood normal. [] Current Patient Data Vital Signs Vital Signs Date Time Temp Pulse Resp B/P (MAP) Pulse Ox O2 Delivery O2 Flow Rate FiO2 07/12/18 15:43 98.1 69 20 142/67 (92) 98 Nasal Cannula 3.0 98.1 EKG EKG [] Radiology/Procedures Radiology/Procedures []PROCEDURE: CT HEAD AND CERVICAL SPINE WO Examination: CT head and cervical spine without contrast HISTORY: History of headache, neck pain, fall down COMPARISON: None available . CT HEAD INDICATION: head/neck pain after fall COMPARISON: None Available. Exposure: One or more of the following individualized dose reduction techniques were utilized for this examination: 1. Automated exposure control 2. Adjustment of the mA and/or kV according to patient size 3. Use of iterative reconstruction technique TECHNIQUE: 5 mm contiguous axial images were obtained from the skull base to the vertex in both bone and soft tissue algorithm. FINDINGS: Mild scalp contusion identified in the posterior parietal scalp region. Mild bilateral periventricular white matter hypodensities likely chronic small vessel ischemic disease. No evidence of acute intracranial hemorrhage. No extra-axial fluid collections. No mass effect or midline shift. Ventricular size is appropriate. Basal cisterns are patent. No fractures identified.Cain-white differentiation is preserved.Globes and orbits are within normal limits. Paranasal sinuses and mastoid air cells are clear. IMPRESSION: No acute intracranial findings. CT CERVICAL SPINE INDICATION: head/neck pain after fall COMPARISON: None Available. Technique: 2.5 mm contiguous axial images were obtained from the skull base through the cervicothoracic junction in both bone and soft tissue algorithm. Additional sagittal and coronal reconstructions were also performed. FINDINGS: Vertebral body height and alignment are maintained. Cervical lordosis is preserved. The lateral masses of C1 are aligned upon C2. No fractures identified. The bony canal is patent throughout. Mild intervertebral disc height loss identified throughout cervical spine . Moderate due to disc height loss identified at C6-C7 vertebral levels with small posterior disc bulge. Mild posterior disc bulge identified at C5-C6 vertebral level. The paraspinous soft tissues are unremarkable. Visualized intracranial contents are unremarkable. Lung apices are clear. IMPRESSION: 1. No acute fracture of the cervical spine. 2. Moderate degenerative changes cervical spine. Electronically signed by: Nikolay Abrams MD (07/12/2018 5:03 PM) [facility] DICTATED and SIGNED BY: NIKOLAY ABRAMS MD DATE: 07/12/181656 Course & Med Decision Making Course & Med Decision Making Pertinent Labs and Imaging studies reviewed. (See chart for details) This is a 62-year-old female patient presenting to the ED today status post falling. Patient has contusion to her scalp and is complaining of head and neck pain. CT of the head and cervical spine interpreted by radiologist are negative for any acute findings, noted for arthritis of the cervical spine. Patient's neurological exam is intact. She was given a tetanus shot in the ED. She was instructed to follow-up with her own PCP in 1-2 weeks. Ice elevation recommended. OTC pain relievers especially Tylenol as needed for pain. Dragon Disclaimer Dragon Disclaimer This electronic medical record was generated, in whole or in part, using a voice recognition dictation system. Departure Departure Impression: Primary Impression: Fall from height of less than 3 feet Additional Impressions: Closed head injury Cervical strain, acute Scalp contusion DJD (degenerative joint disease), cervical Disposition: 01 HOME, SELF-CARE Condition: STABLE Referrals: UNKNOWN PCP NAME (PCP) follow up with your doctor in one week Patient Instructions: Arthritis, Degenerative-Brief, Cervical Strain and Sprain with Rehab-Sports[facility], Fall Prevention and Home Safety, Head Injury, Adult Additional Instructions: You were evaluated in the emergency room after falling. Your CT of the head and cervical spine are negative for any acute findings. Your CT of the cervical spine was noted for arthritis in your neck. Please ice and elevate the affected area. Take [id number] pain relievers as patient Tylenol as needed for pain. Come back to the ED at any point symptoms worsen or you have new concerning symptoms including but not limited to confusion, excessive sleepiness , uncontrolled pain, uncontrolled nausea vomiting. Scripts Ondansetron (ZOFRAN ODT) 4 Mg Tab.rapdis 1 TAB SL Q8HRS, #15 TAB Prov: BHANU MCDONOUGH APRN 07/12/18 Problem Qualifiers Additional Impressions: Closed head injury Encounter type: initial encounter Qualified Codes: S09.90XA - Unspecified injury of head, initial encounter Cervical strain, acute Encounter type: initial encounter Qualified Codes: S16.1XXA - Strain of muscle, fascia and tendon at neck level, initial encounter Scalp contusion Encounter type: initial encounter Qualified Codes: S00.03XA - Contusion of scalp, initial encounter DJD (degenerative joint disease), cervical Spinal osteoarthritis complication: unspecified spinal osteoarthritis Qualified Codes: M47.812 - Spondylosis without myelopathy or radiculopathy, cervical region BHANU MCDONOUGH APRN Jul 12, 2018 16:04
[2018-07-12 16:46] VITALS: BP 145/65
--- NOTE | 2018-07-12 17:02 | EKG ---
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
--- NOTE | 2018-07-12 17:06 | RAD ---
Examination: CT head and cervical spine without contrast HISTORY: History of headache, neck pain, fall down COMPARISON: None available . CT HEAD INDICATION: head/neck pain after fall COMPARISON: None Available. Exposure: One or more of the following individualized dose reduction techniques were utilized for this examination: 1. Automated exposure control 2. Adjustment of the mA and/or kV according to patient size 3. Use of iterative reconstruction technique TECHNIQUE: 5 mm contiguous axial images were obtained from the skull base to the vertex in both bone and soft tissue algorithm. FINDINGS: Mild scalp contusion identified in the posterior parietal scalp region. Mild bilateral periventricular white matter hypodensities likely chronic small vessel ischemic disease. No evidence of acute intracranial hemorrhage. No extra-axial fluid collections. No mass effect or midline shift. Ventricular size is appropriate. Basal cisterns are patent. No fractures identified.Cain-white differentiation is preserved.Globes and orbits are within normal limits. Paranasal sinuses and mastoid air cells are clear. IMPRESSION: No acute intracranial findings. CT CERVICAL SPINE INDICATION: head/neck pain after fall COMPARISON: None Available. Technique: 2.5 mm contiguous axial images were obtained from the skull base through the cervicothoracic junction in both bone and soft tissue algorithm. Additional sagittal and coronal reconstructions were also performed. FINDINGS: Vertebral body height and alignment are maintained. Cervical lordosis is preserved. The lateral masses of C1 are aligned upon C2. No fractures identified. The bony canal is patent throughout. Mild intervertebral disc height loss identified throughout cervical spine . Moderate due to disc height loss identified at C6-C7 vertebral levels with small posterior disc bulge. Mild posterior disc bulge identified at C5-C6 vertebral level. The paraspinous soft tissues are unremarkable. Visualized intracranial contents are unremarkable. Lung apices are clear. IMPRESSION: 1. No acute fracture of the cervical spine. 2. Moderate degenerative changes cervical spine. Electronically signed by: Nikolay Oseguera MD (07/12/2018 5:03 PM) [facility]
[2018-07-12] MEDS ORDERED: ONDA4TAB10 SL (17:20)
== END 2018-07-12 17:40 | disposition home or self-care (01) ==
LOC: ER 15:43
DX: S16.1XXA Strain of muscle, fascia and tendon at neck level, initial encounter (principal); S00.03XA Contusion of scalp, initial encounter; M47.812 Spondylosis without myelopathy or radiculopathy, cervical region; E11.9 Type 2 diabetes mellitus without complications; I10 Essential (primary) hypertension; I25.10 Atherosclerotic heart disease of native coronary artery without angina pectoris; W18.09XA Striking against other object with subsequent fall, initial encounter; Y93.89 Activity, other specified; Y92.89 Other specified places as the place of occurrence of the external cause; Y99.8 Other external cause status
CPT/HCPCS: 70450; 72125; 90471; 90715; 93005; 99284; Q0162